=== PATIENT | male | born 1990 | race Caucasian/White ===

== ENCOUNTER 2019-08-30 23:20 | Emergency (ER) | payer SELFPAY ==
[~2019-08-30] VITALS: Ht 165.1 cm; Wt 90.0 kg
--- NOTE | 2019-08-30 23:24 | ED.ADGEN ---
Past History Past Medical History Deaf, palate defect, - at Adult General Chief Complaint Chief Complaint ".. This all started on a trip to [facility].. for baby shower.. I notice on the way down there.. .I started getting this stomach, chest pain.. I thought it was just that I was hungry... but I got down there and tried to eat.. and it was like knifes in my chest and stomach.. that was on this past Thursday... and ever since.. I have not been able to eat solids.. I can get some liquids down... but the pain is no better..." .. " I can't hardly walk, or step off a curb... with the pain..." HPI HPI Patient is a 29 year old male who presents with above hx and complaints of chest epigastric and right upper quadrant abdomen pain since this past Thursday on August 27. Patient states nothing makes the pain better. Movement makes the pain worse. Eating solids makes the pain worse. No history of GERD or reflux. No history of gallbladder disease with him or family members. 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 No specific history of bad food. Recent travel to [facility]. No history of immunosuppression. Has tried Pepto-Bismol at home and had only increased abdomen discomfort. Pt. describes his pain as severe. Review of Systems Review of Systems Constitutional: Denies fever or chills [] Eyes: Denies change in visual acuity, redness, or eye pain [] HENT: Denies nasal congestion or sore throat [] Respiratory: Denies cough or shortness of breath [] Cardiovascular: No additional information not addressed in HPI [] GI: Patient has complaints of epigastric abdominal pain, nausea,. No vomiting, bloody stools or diarrhea [] : Denies dysuria or hematuria [] Musculoskeletal: Denies back pain or joint pain [] Integument: Denies rash or skin lesions [] Neurologic: Denies headache, focal weakness or sensory changes [] Endocrine: Denies polyuria or polydipsia [] All other systems were reviewed and found to be within normal limits, except as documented in this note. Family History Family History Noncontributory Current Medications Current Medications Current Medications Medications (Trade) Dose Ordered Sig/Sumit Start Time Stop Time Status Last Admin Dose Admin Famotidine (Pepcid Vial) 20 mg 1X ONCE 08/31/19 00:30 08/31/19 00:31 DC 08/31/19 00:52 20 MG Hydromorphone HCl (Dilaudid) 2 mg 1X ONCE 08/31/19 06:00 08/31/19 05:57 DC Info (Do NOT chart on this entry -- for MONITORING) 1 each PRN DAILY PRN 08/31/19 00:30 08/31/19 05:57 DC Iohexol (Omnipaque 240 Mg/ml) 30 ml 1X ONCE 08/31/19 01:00 08/31/19 01:01 DC 08/31/19 01:35 30 ML Iohexol (Omnipaque 300 Mg/ml) 75 ml 1X ONCE 08/31/19 01:00 08/31/19 01:01 DC 08/31/19 01:35 75 ML Lactated Ringer's 1,000 ml @ 1,000 mls/hr 1X ONCE 08/31/19 04:30 08/31/19 05:29 DC 08/31/19 03:40 1,000 MLS/HR Levofloxacin/ Dextrose 100 ml @ 100 mls/hr 1X ONCE 08/31/19 05:30 08/31/19 05:57 DC 08/31/19 05:39 100 MLS/HR Magnesium Hydroxide (Milk Of Magnesia) 2,400 mg 1X ONCE 08/31/19 00:30 08/31/19 00:31 DC 08/31/19 00:52 2,400 MG Metronidazole 100 ml @ 100 mls/hr 1X ONCE 08/31/19 05:30 08/31/19 05:57 DC Metronidazole (Flagyl) 500 mg 1X ONCE 08/31/19 03:00 08/31/19 03:01 DC 08/31/19 03:06 500 MG Morphine Sulfate (Morphine 10mg Syringe) 10 mg 1X ONCE 08/31/19 03:30 08/31/19 03:31 DC 08/31/19 03:06 10 MG Ondansetron HCl (Zofran) 8 mg 1X ONCE 08/31/19 03:30 08/31/19 03:31 DC 08/31/19 03:06 8 MG Sucralfate (Carafate) 1 gm 1X ONCE 08/31/19 00:30 08/31/19 00:31 DC 08/31/19 00:52 1 GM Trimethoprim/ Sulfamethoxazole (Bactrim Ds) 1 tab 1X ONCE 08/31/19 03:00 08/31/19 03:01 DC 08/31/19 03:06 1 TAB See nursing for home meds Allergies Allergies Allergies Coded Allergies Type Severity Reaction Last Updated Verified amoxicillin Allergy Intermediate 08/30/19 Yes cefaclor Allergy Intermediate 08/30/19 Yes clavulanic acid Allergy Intermediate 08/30/19 Yes Physical Exam Physical Exam Constitutional: Moderately acute distress, non-toxic appearance. Tearful. HENT: Normocephalic, atraumatic, bilateral external ears normal, oropharynx moist, no oral exudates, nose normal. Old mastoid surgery scars Eyes: PERRLA, EOMI, conjunctiva normal, no discharge. [] Neck: Normal range of motion, no tenderness, supple, no stridor. [] Cardiovascular: Tachycardia Heart rate regular rhythm, no murmur [] Lungs & Thorax: Bilateral breath sounds equal at apex on auscultation [] Abdomen: Bowel sounds normal, soft, right upper quadrant and epi gastric tenderness, no masses, no pulsatile masses. Climbs rectal exam at this time. (No history of tarry stools). Rebound to right upper quadrant and epigastric. Skin: Warm, dry, no erythema, no rash. [] Multiple tattoos. Back: No tenderness, no CVA tenderness. [] Extremities: No tenderness, no cyanosis, no clubbing, ROM intact, no edema. [] No true psoas sign. Neurologic: Alert and oriented X 3, normal motor function, normal sensory function, no focal deficits noted. [] Psychologic: Affect anxious, judgement normal, mood normal. [] Current Patient Data Vital Signs Vital Signs Date Time Temp Pulse Resp B/P (MAP) Pulse Ox O2 Delivery O2 Flow Rate FiO2 08/31/19 05:07 95 20 116/62 (80) 97 Room Air 08/30/19 23:20 99.0 Lab Results Laboratory Tests Test 08/30/19 23:44 08/30/19 23:57 Urine Collection Type Unknown Urine Color Yellow Urine Clarity Clear Urine pH 7.0 Urine Specific Sylvester 1.020 Urine Protein Neg (NEG-TRACE) Urine Glucose (UA) Neg mg/dL (NEG) Urine Ketones (Stick) Neg mg/dL (NEG) Urine Blood Neg (NEG) Urine Nitrite Neg (NEG) Urine Bilirubin Neg (NEG) Urine Urobilinogen Dipstick 0.2 mg/dL (0.2 mg/dL) Urine Leukocyte Esterase Neg (NEG) Urine RBC 0 /HPF (0-2) Urine WBC 1-4 /HPF (0-4) Urine Squamous Epithelial Cells Occ /LPF Urine Amorphous Sediment Present /HPF Urine Bacteria Few /HPF (0-FEW) Urine Opiates Screen Neg (NEG) Urine Methadone Screen Neg (NEG) Urine Barbiturates Neg (NEG) Urine Phencyclidine Screen Neg (NEG) Urine Amphetamine/Methamphetamine Neg (NEG) Urine Benzodiazepines Screen Neg (NEG) Urine Cocaine Screen Neg (NEG) Urine Cannabinoids Screen Neg (NEG) Urine Ethyl Alcohol Neg (NEG) White Blood Count 14.3 x10^3/uL (4.0-11.0) H Red Blood Count 6.27 x10^6/uL (4.30-5.70) H Hemoglobin 17.7 g/dL (13.0-17.5) H Hematocrit 52.8 % (39.0-53.0) Mean Corpuscular Volume 84 fL (79-100) Mean Corpuscular Hemoglobin 28 pg (25-35) Mean Corpuscular Hemoglobin Concent 34 g/dL (31-37) Red Cell Distribution Width 14.0 % (11.5-14.5) Platelet Count 265 x10^3/uL (140-400) Neutrophils (%) (Auto) 70 % (31-73) Lymphocytes (%) (Auto) 20 % (24-48) L Monocytes (%) (Auto) 7 % (0-9) Eosinophils (%) (Auto) 2 % (0-3) Basophils (%) (Auto) 1 % (0-3) Neutrophils # (Auto) 10.1 x10^3uL (1.8-7.7) H Lymphocytes # (Auto) 2.9 x10^3/uL (1.0-4.8) Monocytes # (Auto) 1.0 x10^3/uL (0.0-1.1) Eosinophils # (Auto) 0.3 x10^3/uL (0.0-0.7) Basophils # (Auto) 0.1 x10^3/uL (0.0-0.2) Prothrombin Time 10.6 SEC (9.4-11.4) Prothrombin Time INR 1.0 (0.9-1.1) Activated Partial Thromboplast Time 23 SEC (23-33) D-Dimer (Rose) 0.52 mg/L (0.00-0.50) H Sodium Level 143 mmol/L (136-145) Potassium Level 3.6 mmol/L (3.5-5.1) Chloride Level 105 mmol/L (98-107) Carbon Dioxide Level 32 mmol/L (21-32) Anion Gap 6 (6-14) Blood Urea Nitrogen 15 mg/dL (8-26) Creatinine 1.0 mg/dL (0.7-1.3) Estimated GFR (Cockcroft-Gault) 89.6 Glucose Level 135 mg/dL (70-99) H Calcium Level 7.8 mg/dL (8.5-10.1) L Magnesium Level 1.6 mg/dL (1.8-2.4) L Total Bilirubin 0.2 mg/dL (0.2-1.0) Direct Bilirubin 0.1 mg/dL (0.0-0.2) Aspartate Amino Transferase (AST) 12 U/L (15-37) L Alanine Aminotransferase (ALT) 27 U/L (16-63) Alkaline Phosphatase 71 U/L (46-116) Creatine Kinase 40 U/L (39-308) Troponin I Quantitative < 0.017 ng/mL (0-0.055) Total Protein 6.5 g/dL (6.4-8.2) Albumin 2.9 g/dL (3.4-5.0) L Amylase Level 44 U/L (25-115) Lipase 118 U/L (73-393) EKG EKG My interpretation EKG shows a sinus rhythm at 99 bpm. Does have some bimodal P- wave is in left leads. Mild left axis. J point findings in V2 through V3 but no contralateral changes consistent with STEMI.[] Radiology/Procedures Radiology/Procedures [address] [address] IMAGING REPORT Signed PATIENT: CALLIE CHO SACCOUNT: [id number] : 1990 LOCATION: ER AGE: 29 SEX: M EXAM STATUS: REG ER ORD. PHYSICIAN: JOANA VASQUEZ MD REASON: Lower chest and abdominal pain, nausea, constipation PROCEDURE: CHEST PA & LATERAL CHEST PA LATERAL History: Lower chest pain. Comparison: None. Findings: No consolidation or pleural effusion. Normal heart size. Impression: 1. No acute cardiopulmonary process. Electronically signed by: Kyaw Guzman DO (08/31/2019 2:21 AM) [facility] DICTATED AND SIGNED BY: KYAW GUZMAN DO DATE: 08/31/19220 CC: JOANA VASQUEZ MD; PCP,NO ~ [address] [address] IMAGING REPORT Signed PATIENT: CALLIE CHO: [id number] : 1990 LOCATION: ER AGE: 29 SEX: M EXAM STATUS: REG ER ORD. PHYSICIAN: JOANA VASQUEZ MD REASON: Lower chest and abdomen pain, nausea, constipation PROCEDURE: ABDOMEN SUPINE & UPRIGHT ABDOMEN SUPINE UPRIGHT History: Abdominal pain. Nausea. Constipation. Technique: Supine and upright views of the abdomen. Comparison: None. Findings: No pneumatosis or pneumoperitoneum. Imaged lung bases are unremarkable. Minimal small bowel gas. Air and stool scattered throughout the imaged colon. Impression: 1. Nonobstructed bowel gas pattern. Electronically signed by: Kyaw Guzman DO (08/31/2019 2:20 AM) [facility] DICTATED AND SIGNED BY: KYAW GUZMAN DO DATE: 08/31/19219 CC: JOANA VASQUEZ MD; PCP,NO ~ [[address] [address] IMAGING REPORT Signed PATIENT: CALLIE CHO: [id number] : 1990 LOCATION: ER AGE: 29 SEX: M EXAM STATUS: REG ER ORD. PHYSICIAN: JOANA VASQUEZ MD REASON: Abdomen pain, nausea PROCEDURE: CT ABD PELV W/ORAL&IV CONTRAST CT ABD PELV W/ORAL IV CONTRAST History: Abdominal pain. Nausea. Technique: After the administration of oral and intravenous contrast, CT imaging was performed of the abdomen and pelvis. Multiplanar images are reviewed. Exposure: One or more of the following individualized dose reduction techniques were utilized for this examination: 1. Automated exposure control 2. Adjustment of the mA and/or kV according to patient size 3. Use of iterative reconstruction technique. Comparison: None Findings: Lower chest: No consolidation or pleural effusion. Abdomen and pelvis: Hepatic steatosis. The spleen, adrenal glands, pancreas and gallbladder are unremarkable. Unremarkable appearance of the kidneys. Bilateral extrarenal pelvises. No intrarenal calculi. Minimal left pelvocaliectasis. Normal appendix. No evidence of bowel obstruction. Oral contrast opacifies to the level of the cecum. No pathologic lymphadenopathy. No ascites. Pelvic contents are unremarkable. Bones: No pathologic osseous lesions. Impression: 1. No acute intra-abdominal or pelvic pathology. 2. Minimal left pelvocaliectasis. 3. Mild hepatic steatosis. Electronically signed by: Kyaw Guzman DO (08/31/2019 2:06 AM) [facility] DICTATED AND SIGNED BY: KYAW GUZMAN DO DATE: 08/31/19205 CC: JOANA VASQUEZ MD; PCP,NO ~ ][place] [address] IMAGING REPORT Signed PATIENT: CALLIE CHO SACCOUNT: [id number] : 1990 LOCATION: ER AGE: 29 SEX: M EXAM STATUS: REG ER ORD. PHYSICIAN: JOANA VASQUEZ MD REASON: biliary colic PROCEDURE: ABDOMEN LTD ABDOMEN LTD History: Right upper quadrant pain. Comparison: CT August 31, 2019. Technique: Transabdominal ultrasound images are obtained of the right upper quadrant. Findings: Visualized pancreas is not well seen due to overlying bowel gas. Liver is increased in echogenicity. Right hepatic lobe measures 16.9 cm. Portal flow is hepatopedal. Gallbladder sludge. No cholelithiasis. No gallbladder wall thickening. Common bile duct caliber is normal measuring 6 mm in diameter. The right kidney measures 12.4 x 4.5 x 3.9 cm in length and is without evidence of obstruction or stone. Visualized portions of the aorta and IVC have normal caliber. IMPRESSION: 1. Gallbladder sludge. Electronically signed by: Kyaw Guzman DO (08/31/2019 4:39 AM) [facility] DICTATED AND SIGNED BY: KYAW GUZMAN DO DATE: 08/31/19 0439 CC: JOANA VASQUEZ MD; PCP,NO ~ Course & Med Decision Making Course & Med Decision Making Pertinent Labs and Imaging studies reviewed. (See chart for details) Pt. unable to achieve any relief after two bolus LR, and Morphine 10 x 2, MOM, Carfate and Pepcid. Discussed presentation, testing and tx plan with Dr. Venegas- Transfer to his service at [facility]. Discussed presentation with Dr. Mcdonald, he will consult on pt. for abd. pain and biliary colic [] Final Impression Final Impression 1. Epigastric and right upper quadrant pain[] 2. Biliary Colic- Gallbladder Sludge 3. Constipation 4. Hypomagnesium 1.6 5. Leukocytosis 14.3 6. Dehydration Dragon Disclaimer Dragon Disclaimer This electronic medical record was generated, in whole or in part, using a voice recognition dictation system. Dragon Disclaimer This chart was dictated in whole or in part using Voice Recognition software in a busy, high-work load, and often noisy Emergency Department environment. It may contain unintended and wholly unrecognized errors or omissions. Dragon Disclaimer This chart was dictated in whole or in part using Voice Recognition software in a busy, high-work load, and often noisy Emergency Department environment. It may contain unintended and wholly unrecognized errors or omissions. JOANA VASQUEZ MD Aug 30, 2019 23:24
[2019-08-31 00:29] LABS: BASO # 0.1 x10^3/uL (0.0-0.2); BASO % 1 % (0-3); EOS # 0.3 x10^3/uL (0.0-0.7); EOS % 2 % (0-3); HEMATOCRIT 52.8 % (39.0-53.0); HEMOGLOBIN 17.7 g/dL (13.0-17.5); LYMPH # 2.9 x10^3/uL (1.0-4.8); LYMPH % 20 % (24-48); MEAN CORPUSCULAR HEMOGLOBIN 28 pg (25-35); MEAN CORPUSCULAR HGB CONC 34 g/dL (31-37); MEAN CORPUSCULAR VOLUME 84 fL (79-100); MONO % 7 % (0-9); NEUT # 10.1 x10^3uL (1.8-7.7); NEUT % 70 % (31-73); PLATELET COUNT 265 x10^3/uL (140-400); RED BLOOD COUNT 6.27 x10^6/uL (4.30-5.70); WHITE BLOOD COUNT 14.3 x10^3/uL (4.0-11.0)
[2019-08-31 00:30] LABS: BARBITURATES NEG (NEG); BENZODIAZEPINES NEG (NEG); CANNABINOIDS NEG (NEG); COCAINE NEG (NEG); METHADONE NEG (NEG); OPIATES NEG (NEG); PHENCYCLIDINE NEG (NEG)
[2019-08-31] MEDS ORDERED: CONTRAST GIVEN MC PRN (00:30)
[2019-08-31] MEDS ORDERED: MAGNESIUM HYDROXIDE 2,400 MG/30 ML ORAL.SUSP. PO ONE (00:30)
[2019-08-31] MEDS ORDERED: SUCRALFATE 1 GM TABLET. PO ONE (00:30)
[2019-08-31] MEDS ORDERED: MORPHINE SULFATE 10 MG/ML SYRINGE. SQ ONE ×2 (00:30→03:30)
[2019-08-31] MEDS ORDERED: IV RINGERS SOLUTION,LACTATED 1,000 ML IV SCH (00:30)
[2019-08-31] MEDS ORDERED: FAMOTIDINE 20 MG/2 ML VIAL IVP ONE (00:30)
[2019-08-31 00:32] LABS: AMPHETAMINE/METHAMPHETAMINE NEG (NEG)
[2019-08-31 00:38] LABS: AMORPHOUS SEDIMENT,UR PRESENT /HPF; BACTERIA,URINE FEW /HPF (0-FEW); BILIRUBIN,URINE NEG (NEG); CLARITY,URINE CLEAR; COLOR,URINE YELLOW; GLUCOSE,URINE NEG (NEG); NITRITE,URINE NEG (NEG); RBC,URINE 0 /HPF (0-2); SQUAMOUS EPITHELIAL CELL,UR OCC /LPF; UROBILINOGEN,URINE 0.2 mg/dL (0.2 mg/dL)
[2019-08-31 00:38] LABS: ALBUMIN 2.9 g/dL (3.4-5.0); CALCIUM 7.8 mg/dL (8.5-10.1); DIRECT BILIRUBIN 0.1 mg/dL (0.0-0.2); GFR 89.6; MAGNESIUM 1.6 mg/dL (1.8-2.4); POTASSIUM 3.6 mmol/L (3.5-5.1); TOTAL BILIRUBIN 0.2 mg/dL (0.2-1.0); TOTAL PROTEIN 6.5 g/dL (6.4-8.2)
[2019-08-31] MEDS ORDERED: IOHEXOL 240 MG/ML 50ML VIAL. PO ONE (01:00)
[2019-08-31] MEDS ORDERED: IOHEXOL 300 MG/ML 75 ML VIAL. IV ONE (01:00)
--- NOTE | 2019-08-31 02:09 | RAD ---
CT ABD PELV W/ORAL IV CONTRAST History: Abdominal pain. Nausea. Technique: After the administration of oral and intravenous contrast, CT imaging was performed of the abdomen and pelvis. Multiplanar images are reviewed. Exposure: One or more of the following individualized dose reduction techniques were utilized for this examination: 1. Automated exposure control 2. Adjustment of the mA and/or kV according to patient size 3. Use of iterative reconstruction technique. Comparison: None Findings: Lower chest: No consolidation or pleural effusion. Abdomen and pelvis: Hepatic steatosis. The spleen, adrenal glands, pancreas and gallbladder are unremarkable. Unremarkable appearance of the kidneys. Bilateral extrarenal pelvises. No intrarenal calculi. Minimal left pelvocaliectasis. Normal appendix. No evidence of bowel obstruction. Oral contrast opacifies to the level of the cecum. No pathologic lymphadenopathy. No ascites. Pelvic contents are unremarkable. Bones: No pathologic osseous lesions. Impression: 1. No acute intra-abdominal or pelvic pathology. 2. Minimal left pelvocaliectasis. 3. Mild hepatic steatosis. Electronically signed by: Kyaw Guzman DO (08/31/2019 2:06 AM) [facility]
[2019-08-31] MEDS ORDERED: METR500T PO (02:23)
[2019-08-31] MEDS ORDERED: RANI-376 PO (02:23)
[2019-08-31] MEDS ORDERED: SULF1TAB24 PO (02:23)
[2019-08-31] MEDS ORDERED: SUCR1TAB35 PO (02:23)
--- NOTE | 2019-08-31 02:23 | RAD ---
ABDOMEN SUPINE UPRIGHT History: Abdominal pain. Nausea. Constipation. Technique: Supine and upright views of the abdomen. Comparison: None. Findings: No pneumatosis or pneumoperitoneum. Imaged lung bases are unremarkable. Minimal small bowel gas. Air and stool scattered throughout the imaged colon. Impression: 1. Nonobstructed bowel gas pattern. Electronically signed by: Kyaw Guzman DO (08/31/2019 2:20 AM) [facility]
--- NOTE | 2019-08-31 02:24 | RAD ---
CHEST PA LATERAL History: Lower chest pain. Comparison: None. Findings: No consolidation or pleural effusion. Normal heart size. Impression: 1. No acute cardiopulmonary process. Electronically signed by: Kyaw Guzman DO (08/31/2019 2:21 AM) [facility]
[2019-08-31] MEDS ORDERED: metroNIDAZOLE 500 MG TABLET PO ONE (03:00)
[2019-08-31] MEDS ORDERED: SMZ/TMP 800/160MG TABLET. PO ONE (03:00)
[2019-08-31] MEDS ORDERED: ONDANSETRON PF 4 MG/2 ML VIAL. IVP ONE (03:30)
[2019-08-31] MEDS ORDERED: IV RINGERS SOLUTION,LACTATED 1,000 ML IV ONE (04:30)
--- NOTE | 2019-08-31 04:42 | RAD ---
ABDOMEN LTD History: Right upper quadrant pain. Comparison: CT August 31, 2019. Technique: Transabdominal ultrasound images are obtained of the right upper quadrant. Findings: Visualized pancreas is not well seen due to overlying bowel gas. Liver is increased in echogenicity. Right hepatic lobe measures 16.9 cm. Portal flow is hepatopedal. Gallbladder sludge. No cholelithiasis. No gallbladder wall thickening. Common bile duct caliber is normal measuring 6 mm in diameter. The right kidney measures 12.4 x 4.5 x 3.9 cm in length and is without evidence of obstruction or stone. Visualized portions of the aorta and IVC have normal caliber. IMPRESSION: 1. Gallbladder sludge. Electronically signed by: Kyaw Guzman DO (08/31/2019 4:39 AM) [facility]
[2019-08-31 05:07] VITALS: BP 116/62
[2019-08-31] MEDS ORDERED: HYDROmorphone PF 2 MG/ML VIAL IV ONE (06:00)
== END 2019-08-31 05:55 | disposition short-term general hospital (02) ==
LOC: ER 23:20
DX: K80.50 Calculus of bile duct without cholangitis or cholecystitis without obstruction (principal); K59.00 Constipation, unspecified; E83.42 Hypomagnesemia; D72.829 Elevated white blood cell count, unspecified; E86.0 Dehydration; Z88.1 Allergy status to other antibiotic agents
CPT/HCPCS: 36415; 71046; 74019; 74177; 76705; 80048; 80076; 80307; 81001; 82150; 82550; 83690; 83735; 84443; 84484; 85025; 85379; 85610; 85730; 86705; 86709; 86803; 87340; 93005; 96361; 96365; 96372; 96375; 99285; J1956; J2270; J2405; J3490; J7120; Q9966; Q9967

== ENCOUNTER 2019-10-19 19:59 | Emergency (ER) | payer SELFPAY ==
[~2019-10-19] VITALS: Ht 165.1 cm; Wt 91.2 kg
[~2019-10-19 19:59] MED LIST: METR500T PO; RANI-376 PO; SUCR1TAB35 PO; SULF1TAB24 PO
--- NOTE | 2019-10-19 20:09 | PHYS DOC ---
Past History Past Medical History: Other Past Surgical History: Other Additional Past Surgical Histo: 9 EAR SURGERYS AND cleft palate Alcohol Use: Rarely Drug Use: None Adult General Chief Complaint Chief Complaint: ".. I am having really bad abdomen pain.. Nuasea and vomiting.. and diarrhea.. It really just started in last 24 hrs.... this af ternoon.. I ve vomited x 6, and 4 watery green stools... " HPI HPI Patient is a 29 year old male who presents with above hx and complaints of generalized abdomen pain. Patient denies any intake of bad food. No recent t ravel. No specific ill contacts. Patient denies any history immunosuppression. Patient only had 2 alcoholic drinks yesterday. Patient denies any trauma. Patient normally healthy. Pain is more likely localized to epigastric and right upper quadrant. Patient states pain seems to be worse after high-fat meal. Patient denies previous history of gallbladder disease or biliary colic. No recent dark or tarry stools. No history of kidney stones. Patient follows with Dr. Singh for [facility] Review of Systems Review of Systems Constitutional: Subjective history of fever or chills [] Eyes: Denies change in visual acuity, redness, or eye pain [] HENT: Denies nasal congestion or sore throat [] Respiratory: Denies cough or shortness of breath [] Cardiovascular: No additional information not addressed in HPI [] GI: Complaints of abdominal pain, nausea, vomiting, and diarrhea [] : Denies dysuria or hematuria [] Musculoskeletal: Denies back pain or joint pain [] Integument: Denies rash or skin lesions [] Neurologic: Denies headache, focal weakness or sensory changes [] Endocrine: Denies polyuria or polydipsia [] All other systems were reviewed and found to be within normal limits, except as documented in this note. Family History Family History Noncontributory Current Medications Current Medications See nursing for home medications Allergies Allergies Allergies Coded Allergies Type Severity Reaction Last Updated Verified amoxicillin Allergy Intermediate 08/30/19 Yes cefaclor Allergy Intermediate 08/30/19 Yes clavulanic acid Allergy Intermediate 08/30/19 Yes Physical Exam Physical Exam Constitutional: Reports he is in acute distress, non-toxic appearance. [] HENT: Normocephalic, atraumatic, bilateral external ears normal, oropharynx dry, no oral exudates, nose normal. [] Eyes: PERRLA, EOMI, conjunctiva normal, no discharge. [] Neck: Normal range of motion, no tenderness, supple, no stridor. [] Cardiovascular:Heart rate regular rhythm, no murmur [] Lungs & Thorax: Bilateral breath sounds equal apex scattered wheezes auscultation [] Abdomen: Bowel sounds hyperactive, soft, generalized tenderness, no masses, no pulsatile masses. [] Rebound to right upper quadrant Skin: Warm, dry, no erythema, no rash. Total right arm covered in tattoos Back: No tenderness, no CVA tenderness. [] Extremities: No tenderness, no cyanosis, no clubbing, ROM intact, no edema. []Mild psoas right Neurologic: Alert and oriented X 3, normal motor function, normal sensory function, no focal deficits noted. [] Psychologic: Affect anxious, judgement normal, mood normal. [] EKG EKG [] Radiology/Procedures Radiology/Procedures [][facility] REPORT Signed PATIENT: CALLIE CHOOUNT: [id number] : 1990 LOCATION: ER AGE: 29 SEX: M EXAM STATUS: REG ER ORD. PHYSICIAN: JOANA VASQUEZ MD REASON: Abdomen pain, nausea, vomiting, diarrhea PROCEDURE: CT ABD PELV W/ORAL&IV CONTRAST Study: CT abdomen/pelvis with intravenous contrast Indication: Abdominal pain, nausea, vomiting and diarrhea. Comparison: 08/31/2019 Technique: Helical CT imaging performed of the abdomen and pelvis after the intravenous administration of 74 cc Omnipaque 300 contrast. Sagittal and coronal reformats were obtained. One or more of the following individualized dose reduction techniques were utilized for this examination: 1. Automated exposure control 2. Adjustment of the mA and/or kV according to patient size 3. Use of iterative reconstruction technique. Findings: Mild basilar volume loss. Hepatic steatosis. Unremarkable gallbladder, pancreas, spleen and adrenal glands. Unchanged degree of pelvocaliectasis on the left. Symmetric cortical enhancement. No hydroureter bilaterally. Unremarkable urinary bladder and prostate. A low-attenuation focus at the base of penis in the expected location of the bulbous urethra is seen on image 98 series 2 measuring up to 2.3 cm. This is unchanged in size from the prior and is relatively simple in density. No pericolonic inflammation. Normal appendix. Unremarkable small bowel and stomach. Unremarkable major vascular structures. No adenopathy. No free fluid or air. No acute osseous abnormality. Redemonstrated small bone islands within the femoral heads. Incompletely formed disc space seen at S1-S2. Impression: 1. No acute abnormality seen throughout the abdomen or pelvis. 2. Unchanged low-attenuation focus in the expected location of the bulbous urethra favored on account of a Cowper duct cyst. This could be developmental or acquired and of unlikely clinical significance. The appearance of the kidneys and collecting system is unchanged. 3. Hepatic steatosis. Electronically signed by: FLORENCIA FISHMAN MD (10/19/2019 11:39 PM) [place] [id number] DICTATED AND SIGNED BY: FLORENCIA FISHMAN MD DATE: 10/19/19 [id number] CC: JOANA VASQUEZ MD; PCP,NO ~ [address] [place] [address] IMAGING REPORT Signed PATIENT: CALLIE CHOOUNT: [id number] : 1990 LOCATION: ER AGE: 29 SEX: M EXAM STATUS: REG ER ORD. PHYSICIAN: JOANA VASQUEZ MD REASON: Abdomen pain, diarrhea, nausea, fatigue PROCEDURE: ACUTE ABDOMEN SERIES ACUTE ABDOMEN SERIES History: Abdomen pain, diarrhea, nausea, fatigue. COMPARISON: Abdominal series of 08/31/2019. FINDINGS: Single view the chest is obtained. Cardiomediastinal silhouette is not enlarged. No evidence of pneumothorax, pleural effusion or consolidating infiltrate. Bones appear to be grossly intact. Splenic shadow may be slightly enlarged. No evidence of pathologic calcification. Bowel gas pattern is nonobstructive. Bones appear grossly intact. No evidence of free intraperitoneal gas on upright view. IMPRESSION: 1. No consolidating infiltrate in the chest. 2. Nonobstructive bowel gas pattern. 3. Possible mild splenomegaly. Electronically signed by: Grayson Echols MD (10/19/2019 9:07 PM) [facility] DICTATED AND SIGNED BY: GRAYSON ECHOLS MD DATE: 10/19/19 9709 CC: JOANA VASQUEZ MD; PCP,NO ~ Course & Med Decision Making Course & Med Decision Making Pertinent Labs and Imaging studies reviewed. (See chart for details) Patient's stay on a clear fluid diet only for the next 48 hours. No solids. No milk products. Clear fluids only must allow bowel rest. Takes Zantac 150 mg twice day. Take Zofran 8 mg up 4 times day for active vomiting. Tylenol and ibuprofen for pain. Follow-up primary care. Return if any concerns. Impression: 1. Abdomen Pain 2. Acute Gastroenteritis, NVD 3. Mild Leukocytosis 13.2 4. Biliary colic [] Dragon Disclaimer Dragon Disclaimer This electronic medical record was generated, in whole or in part, using a voice recognition dictation system. Departure Departure: Disposition: 01 HOME/RESIDENCE PRIOR TO ADM Condition: STABLE Referrals: PCPJOHANNA (PCP) Scripts Ranitidine Hcl (ZANTAC) 150 Mg Tablet 150 MG PO BID for GERD, Gastritis for 30 Days, #60 TAB Prov: JOANA VASQUEZ MD 10/20/19 Ondansetron Hcl (ZOFRAN) 8 Mg Tablet 8 MG PO QIDPRN PRN for active nause and vomiting, #30 BOTTLE Prov: JOANA VASQUEZ MD 10/20/19 Dragon Disclaimer This chart was dictated in whole or in part using Voice Recognition software in a busy, high-work load, and often noisy Emergency Department environment. It may contain unintended and wholly unrecognized errors or omissions. Dragon Disclaimer This chart was dictated in whole or in part using Voice Recognition software in a busy, high-work load, and often noisy Emergency Department environment. It may contain unintended and wholly unrecognized errors or omissions. JOANA VASQUEZ MD Oct 19, 2019 20:09
[2019-10-19] MEDS ORDERED: ONDANSETRON PF 4 MG/2 ML VIAL. ONE (20:33)
[2019-10-19] MEDS ORDERED: IV RINGERS SOLUTION,LACTATED 1,000 ML IV SCH (20:36)
[2019-10-19 20:37] LABS: BARBITURATES NEG (NEG); BENZODIAZEPINES NEG (NEG); CANNABINOIDS NEG (NEG); COCAINE NEG (NEG); METHADONE NEG (NEG); OPIATES NEG (NEG); PHENCYCLIDINE NEG (NEG)
[2019-10-19 20:45] LABS: AMPHETAMINE/METHAMPHETAMINE NEG (NEG)
[2019-10-19] MEDS ORDERED: KETOROLAC 30 MG/ML VIAL. IVP ONE (20:45)
[2019-10-19] MEDS ORDERED: FAMOTIDINE 20 MG/2 ML VIAL IVP ONE (20:45)
[2019-10-19] MEDS ORDERED: ONDANSETRON PF 4 MG/2 ML VIAL. IVP ONE (20:45)
[2019-10-19 20:52] LABS: BASO # 0.1 x10^3/uL (0.0-0.2); BASO % 1 % (0-3); EOS # 0.1 x10^3/uL (0.0-0.7); EOS % 1 % (0-3); HEMATOCRIT 46.1 % (39.0-53.0); HEMOGLOBIN 15.7 g/dL (13.0-17.5); LYMPH # 0.7 x10^3/uL (1.0-4.8); LYMPH % 5 % (24-48); MEAN CORPUSCULAR HEMOGLOBIN 28 pg (25-35); MEAN CORPUSCULAR HGB CONC 34 g/dL (31-37); MEAN CORPUSCULAR VOLUME 81 fL (79-100); MONO # 0.6 x10^3/uL (0.0-1.1); MONO % 4 % (0-9); NEUT # 11.7 x10^3uL (1.8-7.7); NEUT % 89 % (31-73); PLATELET COUNT 228 x10^3/uL (140-400); RED BLOOD COUNT 5.67 x10^6/uL (4.30-5.70); RED CELL DISTRIBUTION WIDTH 14.2 % (11.5-14.5); WHITE BLOOD COUNT 13.2 x10^3/uL (4.0-11.0)
[2019-10-19 21:01] LABS: CALCIUM 8.7 mg/dL (8.5-10.1); CREATININE 0.9 mg/dL (0.7-1.3); GFR 101.2; POTASSIUM 3.7 mmol/L (3.5-5.1)
[2019-10-19 21:07] LABS: ALBUMIN 3.8 g/dL (3.4-5.0); DIRECT BILIRUBIN 0.1 mg/dL (0.0-0.2); TOTAL BILIRUBIN 0.6 mg/dL (0.2-1.0); TOTAL PROTEIN 8.4 g/dL (6.4-8.2)
--- NOTE | 2019-10-19 21:10 | RAD ---
ACUTE ABDOMEN SERIES History: Abdomen pain, diarrhea, nausea, fatigue. COMPARISON: Abdominal series of 08/31/2019. FINDINGS: Single view the chest is obtained. Cardiomediastinal silhouette is not enlarged. No evidence of pneumothorax, pleural effusion or consolidating infiltrate. Bones appear to be grossly intact. Splenic shadow may be slightly enlarged. No evidence of pathologic calcification. Bowel gas pattern is nonobstructive. Bones appear grossly intact. No evidence of free intraperitoneal gas on upright view. IMPRESSION: 1. No consolidating infiltrate in the chest. 2. Nonobstructive bowel gas pattern. 3. Possible mild splenomegaly. Electronically signed by: Grayson Echols MD (10/19/2019 9:07 PM) [facility]
[2019-10-19 21:15] LABS: BACTERIA,URINE 0 /HPF (0-FEW); BILIRUBIN,URINE NEG (NEG); CLARITY,URINE CLEAR; COLOR,URINE YELLOW; GLUCOSE,URINE NEG (NEG); NITRITE,URINE NEG (NEG); RBC,URINE 0 /HPF (0-2); SQUAMOUS EPITHELIAL CELL,UR OCC /LPF; UROBILINOGEN,URINE 0.2 mg/dL (0.2 mg/dL); WBC,URINE OCC /HPF (0-4)
[2019-10-19 21:26] LABS: INFLUENZA A PATIENT NEGATIVE (NEGATIVE); INFLUENZA B PATIENT NEGATIVE (NEGATIVE)
[2019-10-19] MEDS ORDERED: CONTRAST GIVEN MC PRN (22:00)
[2019-10-19] MEDS ORDERED: MORPHINE SULFATE 10 MG/ML SYRINGE. SQ ONE (22:00)
[2019-10-19] MEDS ORDERED: IOHEXOL 300 MG/ML 75 ML VIAL. IV ONE (22:00)
[2019-10-19] MEDS ORDERED: IOHEXOL 240 MG/ML 50ML VIAL. PO ONE (22:00)
--- NOTE | 2019-10-19 23:41 | RAD ---
Study: CT abdomen/pelvis with intravenous contrast Indication: Abdominal pain, nausea, vomiting and diarrhea. Comparison: 08/31/2019 Technique: Helical CT imaging performed of the abdomen and pelvis after the intravenous administration of 74 cc Omnipaque 300 contrast. Sagittal and coronal reformats were obtained. One or more of the following individualized dose reduction techniques were utilized for this examination: 1. Automated exposure control 2. Adjustment of the mA and/or kV according to patient size 3. Use of iterative reconstruction technique. Findings: Mild basilar volume loss. Hepatic steatosis. Unremarkable gallbladder, pancreas, spleen and adrenal glands. Unchanged degree of pelvocaliectasis on the left. Symmetric cortical enhancement. No hydroureter bilaterally. Unremarkable urinary bladder and prostate. A low-attenuation focus at the base of penis in the expected location of the bulbous urethra is seen on image 98 series 2 measuring up to 2.3 cm. This is unchanged in size from the prior and is relatively simple in density. No pericolonic inflammation. Normal appendix. Unremarkable small bowel and stomach. Unremarkable major vascular structures. No adenopathy. No free fluid or air. No acute osseous abnormality. Redemonstrated small bone islands within the femoral heads. Incompletely formed disc space seen at S1-S2. Impression: 1. No acute abnormality seen throughout the abdomen or pelvis. 2. Unchanged low-attenuation focus in the expected location of the bulbous urethra favored on account of a Cowper duct cyst. This could be developmental or acquired and of unlikely clinical significance. The appearance of the kidneys and collecting system is unchanged. 3. Hepatic steatosis. Electronically signed by: FLORENCIA FISHMAN MD (10/19/2019 11:39 PM) [facility]
[2019-10-20] MEDS ORDERED: ONDA8TAB9 PO (00:09)
[2019-10-20] MEDS ORDERED: RANI-376 PO (00:09)
[2019-10-20 00:39] VITALS: BP 136/70
== END 2019-10-20 00:43 | disposition home or self-care (01) ==
LOC: ER 19:59
DX: K52.9 Noninfective gastroenteritis and colitis, unspecified (principal); D72.829 Elevated white blood cell count, unspecified; K80.50 Calculus of bile duct without cholangitis or cholecystitis without obstruction; R11.2 Nausea with vomiting, unspecified; Z88.1 Allergy status to other antibiotic agents
CPT/HCPCS: 36415; 74022; 74177; 80048; 80076; 80307; 81001; 82150; 83690; 85025; 85610; 85730; 87804; 96361; 96372; 96374; 96375; 99285; J1885; J2270; J2405; J3490; J7120; Q9966; Q9967

== ENCOUNTER 2019-12-26 00:55 | Emergency (ER) | payer SELFPAY ==
[~2019-12-26] VITALS: Ht 165.1 cm; Wt 93.8 kg
[2019-12-26 00:55] VITALS: BP 112/79
[~2019-12-26 00:55] MED LIST changes: +ONDA8TAB9 PO
[2019-12-26] MEDS ORDERED: CLIN300C8 PO (01:08)
[2019-12-26] MEDS ORDERED: HYDR-3165 PO (01:08)
[2019-12-26] MEDS ORDERED: KETOROLAC 60 MG/2 ML VIAL. IM ONE ×2 (01:10→01:15)
--- NOTE | 2019-12-26 01:19 | PHYS DOC ---
Past History Past Medical History: No Pertinent History Past Surgical History: Other Additional Past Surgical Histo: 9 EAR SURGERYS AND cleft palate Alcohol Use: Rarely Drug Use: None Adult General Chief Complaint Chief Complaint: EARACHE/EAR PAIN HPI HPI Patient is a 29-year-old male presenting with chief complaint of cracked tooth increased right face pain x two weeks slowly getting worse Current Medications Current Medications Current Medications Medications (Trade) Dose Ordered Sig/Sumit Start Time Stop Time Status Last Admin Dose Admin Ketorolac Tromethamine (Toradol Im) 30 mg 1X ONCE 12/26/19 01:15 12/26/19 01:16 UNV Allergies Allergies Allergies Coded Allergies Type Severity Reaction Last Updated Verified amoxicillin Allergy Intermediate 08/30/19 Yes cefaclor Allergy Intermediate 08/30/19 Yes clavulanic acid Allergy Intermediate 08/30/19 Yes Physical Exam Physical Exam Constitutional: Well developed, well nourished, no acute distress, non-toxic appearance. [] HENT: Normocephalic, atraumatic, bilateral external ears normal, oropharynx moist, no oral exudates, nose normal. []cracked tooth no lad no appreciable abscess or facial swelling mild facial ttp Eyes: PERRLA, EOMI, conjunctiva normal, no discharge. [] Neck: Normal range of motion, no tenderness, supple, no stridor. [] Abdomen: soft, no tenderness, no masses, no pulsatile masses. [] Skin: Warm, dry, no erythema, no rash. [] Back: No tenderness, no CVA tenderness. [] Extremities: No tenderness, no cyanosis, no clubbing, ROM intact, no edema. [] Neurologic: Alert and oriented X 3, normal motor function, normal sensory function, no focal deficits noted. [] Psychologic: Affect normal, judgement normal, mood normal. [] EKG EKG [] Radiology/Procedures Radiology/Procedures [] Course & Med Decision Making Course & Med Decision Making Pertinent Labs and Imaging studies reviewed. (See chart for details) []abx and pain meds were given advised see dentist this week. Dragon Disclaimer Dragon Disclaimer This electronic medical record was generated, in whole or in part, using a voice recognition dictation system. Departure Departure: Impression: Primary Impression: Toothache Disposition: HOME, SELF-CARE Condition: STABLE Patient Instructions: Toothache-Brief Scripts Hydrocodone Bit/Acetaminophen (NORCO 5-325 TABLET) 1 Each Tablet 1-2 TAB PO Q4-6HRS PRN for NAUSEA/VOMITING, #8 TAB Prov: ELVIA MORALES MD 12/26/19 Clindamycin Hcl (CLINDAMYCIN HCL) 300 Mg Capsule 1 CAP PO TID for tooth, #21 CAP Prov: ELVIA MORALES MD 12/26/19 ELVIA MORALES MD Dec 26, 2019 01:19
== END 2019-12-26 01:18 | disposition home or self-care (01) ==
LOC: ER 00:55
DX: K08.89 Other specified disorders of teeth and supporting structures (principal); K03.81 Cracked tooth; R51 Headache; Z88.1 Allergy status to other antibiotic agents
CPT/HCPCS: 96372; 99283; J1885

== ENCOUNTER 2020-01-11 22:19 | Emergency (ER) | payer SELFPAY ==
[~2020-01-11] VITALS: Ht 165.1 cm; Wt 93.0 kg
[~2020-01-11 22:19] MED LIST changes: +CLIN300C8 PO; +HYDR-3165 PO
[2020-01-11 22:30] VITALS: BP 146/71
[2020-01-11] MEDS ORDERED: ERYTHROMYCIN 0.5% OPHTH OINTMENT 1GM TUBE. OS STA (22:35)
[2020-01-11] MEDS ORDERED: HYDR-3165 PO (22:48)
[2020-01-11] MEDS ORDERED: ERYT1OIN6 OP (22:48)
--- NOTE | 2020-01-11 22:48 | PHYS DOC ---
Past History Past Medical History: No Pertinent History Past Surgical History: Other Additional Past Surgical Histo: 9 EAR SURGERYS AND cleft palate Alcohol Use: Rarely Drug Use: None Adult General Chief Complaint Chief Complaint: EYE PROBLEMS HPI HPI Patient is a 30-year-old male who presents with complaint of left eye pain after accidentally scratching his eye with contact lens. Patient denies any loss of vision. He just reports that eyes painful and red. He rates pain as moderate. Injury occurred this morning.[] Review of Systems Review of Systems Constitutional: Denies fever or chills [] Eyes: Denies change in visual acuity. Complains of eye redness and pain [] Respiratory: Denies cough or shortness of breath [] Cardiovascular: No additional information not addressed in HPI [] Neurologic: Denies headache, focal weakness or sensory changes [] Current Medications Current Medications Current Medications Medications (Trade) Dose Ordered Sig/Sumit Start Time Stop Time Status Last Admin Dose Admin Erythromycin (Romycin) 0.5 inch 1X STAT 01/11/20 22:35 01/11/20 22:38 DC 01/11/20 22:42 0.5 INCH Fluorescein Sodium (Ful-Rakel 1mg) 1 strip 1X ONCE 01/11/20 23:00 01/11/20 23:01 01/11/20 22:42 1 STRIP Allergies Allergies Allergies Coded Allergies Type Severity Reaction Last Updated Verified amoxicillin Allergy Intermediate 08/30/19 Yes cefaclor Allergy Intermediate 08/30/19 Yes clavulanic acid Allergy Intermediate 08/30/19 Yes Physical Exam Physical Exam Constitutional: Well developed, well nourished, no acute distress, non-toxic appearance. [] Eyes: PERRLA, EOMI. sclera is moderately injected with small abrasion at the 7 o'clock position within the sclera, approaching the border of the iris [] Cardiovascular:Heart rate regular rhythm, no murmur [] Lungs & Thorax: Bilateral breath sounds clear to auscultation [] Neurologic: Alert and oriented X 3, no focal deficits noted. [] Current Patient Data Vital Signs Vital Signs Date Time Temp Pulse Resp B/P (MAP) Pulse Ox O2 Delivery O2 Flow Rate FiO2 01/11/20 22:30 98.9 109 20 146/71 (96) 96 Room Air EKG EKG [] Radiology/Procedures Radiology/Procedures [] Course & Med Decision Making Course & Med Decision Making Pertinent Labs and Imaging studies reviewed. (See chart for details) [] Dragon Disclaimer Dragon Disclaimer This electronic medical record was generated, in whole or in part, using a voice recognition dictation system. Departure Departure: Impression: Primary Impression: Abrasion of sclera of left eye Disposition: HOME, SELF-CARE Condition: STABLE Referrals: PCP,NO (PCP) Patient Instructions: Eye - Corneal Abrasion Scripts Hydrocodone Bit/Acetaminophen (NORCO 5-325 TABLET) 1 Each Tablet 1 TAB PO PRN Q6HRS PRN for PAIN, #15 TAB 0 Refills Prov: SHRAVAN LAMBERT Jr. DO 01/11/20 Erythromycin Base (Erythromycin) 1 Gm Oint...g. 0.5 INCH OP TID for infection, #3.5 GM Prov: SHRAVAN LAMBERT Jr. DO 01/11/20 Problem Qualifiers Primary Impression: Abrasion of sclera of left eye Encounter type: initial encounter Qualified Codes: S05.8X2A - Other injuries of left eye and orbit, initial encounter SHRAVAN LAMBERT Jr. DO Jan 11, 2020 22:48
[2020-01-11] MEDS ORDERED: FLUORESCEIN 1MG EYE STRIP. OS ONE (23:00)
== END 2020-01-11 23:00 | disposition home or self-care (01) ==
LOC: ER 22:19
DX: S05.02XA Injury of conjunctiva and corneal abrasion without foreign body, left eye, initial encounter (principal); W22.8XXA Striking against or struck by other objects, initial encounter; Z88.1 Allergy status to other antibiotic agents; Y93.89 Activity, other specified; Y92.89 Other specified places as the place of occurrence of the external cause; Y99.8 Other external cause status
CPT/HCPCS: 99283

== ENCOUNTER 2020-01-14 02:09 | Emergency (ER) | payer SELFPAY ==
[~2020-01-14] VITALS: Ht 165.1 cm; Wt 93.0 kg
[~2020-01-14 02:09] MED LIST changes: +ERYT1OIN6 OP
--- NOTE | 2020-01-14 02:12 | PHYS DOC ---
Past History Past Medical History: No Pertinent History Past Surgical History: Other Additional Past Surgical Histo: 9 EAR SURGERYS AND cleft palate Alcohol Use: Rarely Drug Use: None Adult General Chief Complaint Chief Complaint: ".. I got my eye scratched.. Using cosmetic contacts... I was here yesterday and he started me on erythromycin but I still red.. and the ointment may my vision blurred..." HPI HPI Patient is a 30 year old male who presents with above hx and complaints abrasion to left eye while attempting to remove a cosmetic contact. Patient seen on 01/10 for abrasion of his cornea. Does have conjunctivitis of left eye. Pupils equal react to light. No consensual light pain reflex.. Does have forcing uptake in sclera and cornea. Patient denies any history immunosuppression. No specific ill contacts. Is up-to-date with tetanus. Review of Systems Review of Systems Constitutional: Denies fever or chills [] Eyes: Complains of change in visual acuity, redness, and eye irritation left eye. HENT: Denies nasal congestion or sore throat [] Respiratory: Denies cough or shortness of breath [] Cardiovascular: No additional information not addressed in HPI [] GI: Denies abdominal pain, nausea, vomiting, bloody stools or diarrhea [] : Denies dysuria or hematuria [] Musculoskeletal: Denies back pain or joint pain [] Integument: Denies rash or skin lesions [] Neurologic: Denies headache, focal weakness or sensory changes [] Endocrine: Denies polyuria or polydipsia [] All other systems were reviewed and found to be within normal limits, except as documented in this note. Family History Family History Noncontributory Current Medications Current Medications See nursing for home meds Allergies Allergies Allergies Coded Allergies Type Severity Reaction Last Updated Verified amoxicillin Allergy Intermediate 08/30/19 Yes cefaclor Allergy Intermediate 08/30/19 Yes clavulanic acid Allergy Intermediate 08/30/19 Yes Physical Exam Physical Exam Constitutional: Well developed, well nourished, mild distress, non-toxic appearance. [] HENT: Normocephalic, atraumatic, bilateral external ears normal, oropharynx moist, no oral exudates, nose normal. [] Eyes: PERRLA, EOMI, right conjunctiva normal, no discharge. []Except findings in left eye as per history of present illness. Marked myosis Neck: Normal range of motion, no tenderness, supple, no stridor. [] Cardiovascular:Heart rate regular rhythm, no murmur [] Lungs & Thorax: Bilateral breath sounds equal at apex auscultation [] Abdomen: Bowel sounds normal, soft, no tenderness, no masses, no pulsatile masses. [] Skin: Warm, dry, no erythema, no rash. [] Back: No tenderness, no CVA tenderness. [] Extremities: No tenderness, no cyanosis, no clubbing, ROM intact, no edema. [] Neurologic: Alert and oriented X 3, normal motor function, normal sensory f unction, no focal deficits noted. [] Psychologic: Affect anxious, judgement normal, mood normal. [] EKG EKG [] Radiology/Procedures Radiology/Procedures [] Course & Med Decision Making Course & Med Decision Making Pertinent Labs and Imaging studies reviewed. (See chart for details) Patient to stop erythromycin ointment. To apply Polysporin small amount 4 times a day to left eye. Use toradol eye drops two four times a day. 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 Return if worsening, redness, or decisio n. Expect some blurring of vision with the ointment. Not to use contacts. Impression: 1. Cornea and sclera abrasion left eye [] Dragon Disclaimer Dragon Disclaimer This electronic medical record was generated, in whole or in part, using a voice recognition dictation system. Departure Departure: Disposition: 01 HOME/RESIDENCE PRIOR TO ADM Condition: STABLE Referrals: PCP,NO (PCP) Dragon Disclaimer This chart was dictated in whole or in part using Voice Recognition software in a busy, high-work load, and often noisy Emergency Department environment. It may contain unintended and wholly unrecognized errors or omissions. Dragon Disclaimer This chart was dictated in whole or in part using Voice Recognition software in a busy, high-work load, and often noisy Emergency Department environment. It may contain unintended and wholly unrecognized errors or omissions. JOANA VASQUEZ MD Jan 14, 2020 02:12
[2020-01-14 02:15] VITALS: BP 126/80
[2020-01-14] MEDS ORDERED: TETRACAINE 0.5% OPHTH SOLUTION 4ML BOTTLE. OS ONE (02:30)
[2020-01-14] MEDS ORDERED: FLUORESCEIN 1MG EYE STRIP. OS ONE (02:30)
[2020-01-14] MEDS ORDERED: KETOROLAC TROMETHAMINE 0.5% OPHTH SOLUTION BOTTLE. OS ONE (04:00)
[2020-01-14] MEDS ORDERED: BACITRACIN/POLYMYXIN B OPHTH OINTMENT 3.5GM TUBE. OU ONE (04:00)
== END 2020-01-14 03:49 | disposition home or self-care (01) ==
LOC: ER 02:09
DX: H18.822 Corneal disorder due to contact lens, left eye (principal); Z88.1 Allergy status to other antibiotic agents
CPT/HCPCS: 99284

== ENCOUNTER 2020-02-24 12:47 | Emergency (ER) | payer SELFPAY ==
[~2020-02-24] VITALS: Ht 165.1 cm; Wt 93.0 kg
[2020-02-24 12:47] VITALS: BP 126/80
--- NOTE | 2020-02-24 14:07 | PHYS DOC ---
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 Has no routine ENT follow-up. Has no PMD. Takes no routine antibiotics, not on daily steroids, no h/o immunocompromise state, is not a diabetic. Denies any recent upper respiratory infection. Reports h/o angioedema to ceclor, rash with amoxicillin. Review of systems: Denies associated fever, chills, sore throat, cough, dyspnea, orthopnea, chest pain, nasal congestion, sinus pressure, rhinorrhea, neck anita n/stiffness, headache, blurry vision, n/v/d/c, neuro deficits or back pain. Allergies: Allergies: Allergies Coded Allergies Type Severity Reaction Last Updated Verified amoxicillin Allergy Intermediate 08/30/19 Yes cefaclor Allergy Intermediate 08/30/19 Yes clavulanic acid Allergy Intermediate 08/30/19 Yes Physical Exam: PE: Constitutional: Well developed, poor hygiene, no acute distress, non-toxic appearance, afebrile HENT: Normocephalic, atraumatic, dandruff, oropharynx moist, no oral exudates, unremarkable right tympanic membrane, left TM not visualized, granulation tissue at left external canal, erythema posterior to left ear, no obliteration of auricular crease, no trismus Eyes: EOMI, conjunctiva normal, no discharge. [] Neck: Normal range of motion, no tenderness, supple, no stridor. [] Cardiovascular:Heart rate regular rhythm, no murmur [] Lungs & Thorax: Bilateral breath sounds clear to auscultation [] Abdomen: Bowel sounds normal, soft, no tenderness, no masses, no pulsatile masses. [] Skin: Warm, dry, no erythema, no rash. [] Back: No tenderness, no CVA tenderness. [] Extremities: No tenderness, no cyanosis, no clubbing, ROM intact, no edema. [] Neurologic: Alert and oriented X 3, normal motor function, normal sensory function, no focal deficits noted. [] Psychologic: Affect normal, judgement normal, mood normal. [] Current Patient Data: Vital Signs: HD stable, afebrile EKG: EKG: [] Radiology/Procedures: Radiology/Procedures: []IMAGING REPORT Signed PATIENT: CALLIE CHOOUNT: [id number] : 1990 LOCATION: ER AGE: 30 SEX: M EXAM STATUS: REG ER ORD. PHYSICIAN: GEORGETTE FAUST DO REASON: left mastoiditis PROCEDURE: CT MAXILLOFACIAL W/CONTRAST EXAM: CT Maxillofacial with IV contrast INDICATION: Left mastoiditis TECHNIQUE: Multi-detector row CT images were obtained through the maxillofacial region with the use of IV contrast. Post-processing reconstructed images were obtained for interpretation. All CT scans performed at this facility utilize dose optimization techniques as appropriate to the exam, including the following: Automated exposure control and adjustment of the mA and/or KV according to patient size (this includes techniques or standardized protocols for targeted exams where dose is indication/reason for exam). IV CONTRAST: Administered COMPARISON: None FINDINGS: OSSEOUS: No evidence of fracture or bone destruction. Multiple dental caries are present, most conspicuously in the bilateral maxillary molar teeth and in the right maxillary premolar teeth. 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 VISUALIZED INTRACRANIAL STRUCTURES: Unremarkable. No evidence of venous sinus thrombosis or epidural abscess.. ORBITS: Orbital contents are unremarkable.. SINUSES: Scattered mucosal thickening in the right maxillary sinus. Otherwise the paranasal sinuses are clear. A left mastoid effusion is present along with soft tissue in the left middle ear cavity but the left external auditory canal shows wall thickening and periauricular soft tissue thickening as well. The right mastoids are slightly hypoplastic. The right outer and middle ears are unremarkable. SOFT TISSUES: Unremarkable. IMPRESSION: Findings compatible with left otomastoiditis without complicating features. 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 Patient afebrile with no leukocytosis, elevated CRP at 16. I discussed patient's care with Dr. Coe, ENT on-call who recommends outpatient Cleocin and Keflex (will do bactim instead given allergy hx) and Cortisporin, along with ENT outpatient follow-up information on Thursday. Strict ED return precautions for fever, neurologic deficits, neck pain/stiffness, trismus, headache or blurry vision. Written prescriptions given. Pt developed pruritic urticarial at 1800 over chest and back. IV dexamethasone, pepcid and oral benadryl given. Pt observed in ed -pt w/no angioedema, no pharyngeal edema, clear speech, no drooling. Strict ed return precautions for angioedema/breathing difficulties. I spoken with the patient and her caregivers. I explained the patient's condition, diagnoses and treatment plan based on the information available to me at this time. I have answered the patient and her caregiver's questions and addressed any concerns. The patient and her caregivers have a good understanding of patient's diagnosis, condition and treatment plan as can be expected at this point. Vital signs have been stable. Patient's condition is stable and appropriate for discharge from the emergency department. Patient will pursue further outpatient evaluation with primary care physician or other designated or consulting physician as outlined in the discharge instructions. The patient and/or caregivers are agreeable to this plan of care and follow-up instructions have been explained in detail. The patient and/or caregivers have received these instructions in written form and have expressed an understanding of the discharge instructions. The patient and/or caregivers are aware that any significant change of condition or worsening of symptoms should prompt immediate return to this or the closest emergency department or call to 911. Course & Med Decision Making: Course & Med Decision Making Pertinent Labs and Imaging studies reviewed. (See chart for details) [] Nicolas Disclaimer: Nicolas Disclaimer: This electronic medical record was generated, in whole or in part, using a voice recognition dictation system. Departure Departure: Impression: Primary Impression: Mastoiditis of left side Disposition: HOME/RESIDENCE PRIOR TO ADM Condition: STABLE Referrals: PCPJOHANNA (PCP) SHANICE COE DO Patient Instructions: Mastoiditis GEORGETTE FAUST DO February 24, 2020 14:07
[2020-02-24] MEDS ORDERED: IOHEXOL 300 MG/ML 75 ML VIAL. IV ONE (14:15)
[2020-02-24 14:37] LABS: BASO # 0.1 x10^3/uL (0.0-0.2); BASO % 1 % (0-3); EOS # 0.2 x10^3/uL (0.0-0.7); EOS % 2 % (0-3); HEMATOCRIT 47.4 % (39.0-53.0); HEMOGLOBIN 15.9 g/dL (13.0-17.5); LYMPH # 1.8 x10^3/uL (1.0-4.8); LYMPH % 22 % (24-48); MEAN CORPUSCULAR HEMOGLOBIN 28 pg (25-35); MEAN CORPUSCULAR HGB CONC 34 g/dL (31-37); MEAN CORPUSCULAR VOLUME 84 fL (79-100); MONO # 0.7 x10^3/uL (0.0-1.1); MONO % 8 % (0-9); NEUT # 5.6 x10^3uL (1.8-7.7); NEUT % 67 % (31-73); PLATELET COUNT 258 x10^3/uL (140-400); RED BLOOD COUNT 5.63 x10^6/uL (4.30-5.70); RED CELL DISTRIBUTION WIDTH 14.1 % (11.5-14.5); WHITE BLOOD COUNT 8.3 x10^3/uL (4.0-11.0)
[2020-02-24 15:03] LABS: CALCIUM 9.1 mg/dL (8.5-10.1); CREATININE 0.8 mg/dL (0.7-1.3); GFR 115.1
--- NOTE | 2020-02-24 15:03 | RAD ---
EXAM: CT Maxillofacial with IV contrast INDICATION: Left mastoiditis TECHNIQUE: Multi-detector row CT images were obtained through the maxillofacial region with the use of IV contrast. Post-processing reconstructed images were obtained for interpretation. All CT scans performed at this facility utilize dose optimization techniques as appropriate to the exam, including the following: Automated exposure control and adjustment of the mA and/or KV according to patient size (this includes techniques or standardized protocols for targeted exams where dose is indication/reason for exam). IV CONTRAST: Administered COMPARISON: None FINDINGS: OSSEOUS: No evidence of fracture or bone destruction. Multiple dental caries are present, most conspicuously in the bilateral maxillary molar teeth and in the right maxillary premolar teeth. 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 VISUALIZED INTRACRANIAL STRUCTURES: Unremarkable. No evidence of venous sinus thrombosis or epidural abscess.. ORBITS: Orbital contents are unremarkable.. SINUSES: Scattered mucosal thickening in the right maxillary sinus. Otherwise the paranasal sinuses are clear. A left mastoid effusion is present along with soft tissue in the left middle ear cavity but the left external auditory canal shows wall thickening and periauricular soft tissue thickening as well. The right mastoids are slightly hypoplastic. The right outer and middle ears are unremarkable. SOFT TISSUES: Unremarkable. IMPRESSION: Findings compatible with left otomastoiditis without complicating features. Electronically signed by: Ashley Mcdonough MD (02/24/2020 3:00 PM) [id number]
[2020-02-24 15:08] LABS: ALBUMIN 3.7 g/dL (3.4-5.0); ALBUMIN/GLOBULIN RATIO 0.8 (1.0-1.7); TOTAL BILIRUBIN 0.5 mg/dL (0.2-1.0); TOTAL PROTEIN 8.4 g/dL (6.4-8.2)
[2020-02-24] MEDS ORDERED: CLINDAMYCIN 600MG PREMIX 50 ML IV ONE (16:30)
[2020-02-24] MEDS ORDERED: VANCOMYCIN 2 GM in IV NORMAL SALINE 500ML 500 ML IV ONE (16:40)
[2020-02-24] MEDS ORDERED: diphenhydrAMINE HCL 25 MG CAPSULE PO ONE (18:17)
[2020-02-24] MEDS ORDERED: DEXAMETHASONE SOD PHOS 10 MG/ML VIAL ONE (18:17)
[2020-02-24] MEDS ORDERED: FAMOTIDINE 20 MG/2 ML VIAL ONE (18:17)
== END 2020-02-24 19:09 | disposition home or self-care (01) ==
LOC: ER 12:47
DX: H70.892 Other mastoiditis and related conditions, left ear (principal); R60.0 Localized edema; Z98.890 Other specified postprocedural states; Z88.1 Allergy status to other antibiotic agents; Z88.8 Allergy status to other drugs, medicaments and biological substances
CPT/HCPCS: 36415; 70487; 80053; 85025; 86140; 96365; 96366; 96368; 99285; J3370; J3490; J7040; Q9967

== ENCOUNTER 2020-06-03 10:03 | Emergency (ER) | payer SELFPAY ==
[~2020-06-03] VITALS: Ht 165.1 cm; Wt 94.0 kg
--- NOTE | 2020-06-03 10:05 | PHYS DOC ---
Past History Past Medical History: No Pertinent History Past Surgical History: Other Additional Past Surgical Histo: 9 EAR SURGERYS AND cleft palate Alcohol Use: Rarely Drug Use: None General Adult EDM: Chief Complaint: HEAD INJURY/TRAUMA HPI: HPI: Patient is a 30 year old male who presents for evaluation of left-sided head injury after fall. Patient states he was moving boxes in his house when he fell and hit his head on a dresser. He states he was knocked out and found himself on the floor. Patient has some mild paraspinal neck pain and a moderate headach e. Furthermore patient has recurrent nausea since the injury. This occurred earlier today. There is no significant visual signs of injury however. Patient does have a history of multiple ear surgeries in the past. Patient has been having some left ear pain before this fall. He is concerned about a possible infection. He states he called his family doctor and was advised they could not get him in to be seen. 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 Review of Systems: Review of Systems: Constitutional: Denies fever or chills Eyes: Denies change in visual acuity HENT: Denies nasal congestion or sore throat Respiratory: Denies cough or shortness of breath Cardiovascular: Denies chest pain or edema GI: Denies abdominal pain, has nausea but no vomiting, bloody stools or diarrhea : Denies dysuria Musculoskeletal: Denies back pain or joint pain, mild paraspinal neck pain Integument: Denies rash Neurologic: has headache, but no focal weakness or sensory changes Endocrine: Denies polyuria or polydipsia Lymphatic: Denies swollen glands Psychiatric: Denies depression or anxiety Heart Score: Risk Factors: Risk Factors: DM, Current or recent (<one month) smoker, HTN, HLP, family history of CAD, obesity. Risk Scores: Score 0 - 3: 2.5% MACE over next 6 weeks - Discharge Home Score 4 - 6: 20.3% MACE over next 6 weeks - Admit for Clinical Observation Score 7 - 10: 72.7% MACE over next 6 weeks - Early Invasive Strategies Allergies: Allergies: Allergies Coded Allergies Type Severity Reaction Last Updated Verified amoxicillin Allergy Intermediate 08/30/19 Yes cefaclor Allergy Intermediate 08/30/19 Yes clavulanic acid Allergy Intermediate 08/30/19 Yes vancomycin Allergy Intermediate RED WELTS ON ABDOMEN 02/24/20 Yes Physical Exam: PE: Constitutional: Well developed, well nourished, mild acute distress, non-toxic appearance. [] HENT: Normocephalic, no visible signs of trauma, bilateral external ears normal, oropharynx moist, no oral exudates, nose normal, TM canal narrowed left side, no discharge. [] Eyes: PERRL, EOMI, conjunctiva normal, no discharge. [] Neck: Normal range of motion, no tenderness, supple, no stridor. [] Cardiovascular:Heart rate regular rhythm, no murmur [] Lungs & Thorax: Bilateral breath sounds clear to auscultation [] Abdomen: Bowel sounds normal, soft, no tenderness. [] Skin: Warm, dry, no erythema, no rash. [] Back: No tenderness. [] Extremities: No tenderness, no cyanosis, ROM intact, no edema. [] Neurologic: Alert and oriented X 3, normal motor function, normal sensory function, no focal deficits noted. [] Psychologic: Affect normal, judgement normal, mood normal. [] EKG: EKG: [] Radiology/Procedures: Radiology/Procedures: [place] [address] IMAGING REPORT Signed PATIENT: CALLIE CHOOUNT: [id number] : 1990 LOCATION: ER AGE: 30 SEX: M EXAM STATUS: REG ER ORD. PHYSICIAN: YAMIL BROWN DO REASON: head injury with LOC, neck pain PROCEDURE: CT HEAD AND CERVICAL SPINE WO PQRS Compliance Statement: One or more of the following individualized dose reduction techniques were utilized for this examination: 1. Automated exposure control 2. Adjustment of the mA and/or kV according to patient size 3. Use of iterative reconstruction technique CT HEAD AND CERVICAL SPINE WITHOUT CONTRAST History: Reason: head injury with LOC, neck pain / Comparison: None. Procedure: Axial images are obtained of the head from the skull base through the vertex without IV contrast. Noncontrast helical CT of the cervical spine was performed. Axial, sagittal, and coronal reconstructions were obtained. Findings: The ventricles and sulci are normal for the patient's age. No mass-effect, midline shift, hemorrhage or obvious acute infarction is identified. Basilar cisterns are patent. Bone windows demonstrate no significant calvarial abnormality. The visualized paranasal sinuses are clear. Left mastoid air cells are partially opacified. There is narrowing of the left external auditory canal. There is no evidence of acute fracture or acute malalignment of the cervical spine. 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 The facet joints at this level are mostly fused. 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 There is a narrowed disc space. The vertebral bodies are taller than surrounding levels. There are no perched or jumped facets. The alignment is maintained. There is mild endplate spurring of C3/C4, C4/C5, C5/C6, and C6/C7. Visualized soft tissues of the neck demonstrate no significant abnormalities. The visualized lung apices are clear. IMPRESSION: 1. No acute intracranial abnormality. 2. No acute fracture of the cervical spine. Electronically signed by: Steve Rowe MD (06/03/2020 10:56 AM) [id number] DICTATED AND SIGNED BY: STEVE ROWE MD DATE: 06/03/20 1056 CC: JOHANNA GARCIA; YAMIL BROWN DO ~ [] Course & Med Decision Making: Course & Med Decision Making Pertinent Labs and Imaging studies reviewed. (See chart for details) [] Dragon Disclaimer: Nicolas Disclaimer: This electronic medical record was generated, in whole or in part, using a voice recognition dictation system. 1104 stable, patient reassessed and is lucid awake and appropriate. Patient likely experienced a concussion. Patient is a prior history of concussions. CT scan head and cervical spine showed chronic changes but no acute fracture or brain bleed. Patient has no focal deficits or lateralizing signs. Patient demonstrated a steady gait. Patient medically cleared for discharge and head injury instructions given Departure Departure: Impression: Primary Impression: Concussion Qualified Codes: S06.0X1A - Concussion with loss of consciousness of 30 minutes or less, initial encounter Additional Impressions: Head contusion Qualified Codes: S00.83XA - Contusion of other part of head, initial encounter Cervical strain, acute Qualified Codes: S16.1XXA - Strain of muscle, fascia and tendon at neck level, initial encounter Disposition: 01 HOME/RESIDENCE PRIOR TO ADM Condition: STABLE Referrals: PCPJOHANNA (PCP) ANNA KESSLER MD Patient Instructions: Cervical Strain and Sprain with Rehab-Sports[facility], Concussion and Brain Injury Additional Instructions: You likely had a concussion since she lost consciousness. Follow head injury instructions. Rest ice and elevate the injured areas. Take [id number] Tylenol or ibuprofen as directed for symptom relief Justification of Admission: Justification of Admission: Justification of Admission Dx: N/A YAMIL BROWN DO Jun 03, 2020 10:05
[2020-06-03 10:11] VITALS: BP 133/77
[2020-06-03] MEDS ORDERED: ACETAMINOPHEN 325 MG TABLET PO ONE (10:15)
[2020-06-03] MEDS ORDERED: ONDANSETRON ODT 4 MG TAB.RAPDIS PO ONE (10:15)
--- NOTE | 2020-06-03 10:59 | RAD ---
RS Compliance Statement: One or more of the following individualized dose reduction techniques were utilized for this examination: 1. Automated exposure control 2. Adjustment of the mA and/or kV according to patient size 3. Use of iterative reconstruction technique CT HEAD AND CERVICAL SPINE WITHOUT CONTRAST History: Reason: head injury with LOC, neck pain / Comparison: None. Procedure: Axial images are obtained of the head from the skull base through the vertex without IV contrast. Noncontrast helical CT of the cervical spine was performed. Axial, sagittal, and coronal reconstructions were obtained. Findings: The ventricles and sulci are normal for the patient's age. No mass-effect, midline shift, hemorrhage or obvious acute infarction is identified. Basilar cisterns are patent. Bone windows demonstrate no significant calvarial abnormality. The visualized paranasal sinuses are clear. Left mastoid air cells are partially opacified. There is narrowing of the left external auditory canal. There is no evidence of acute fracture or acute malalignment of the cervical spine. 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 The facet joints at this level are mostly fused. 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 There is a narrowed disc space. The vertebral bodies are taller than surrounding levels. There are no perched or jumped facets. The alignment is maintained. There is mild endplate spurring of C3/C4, C4/C5, C5/C6, and C6/C7. Visualized soft tissues of the neck demonstrate no significant abnormalities. The visualized lung apices are clear. IMPRESSION: 1. No acute intracranial abnormality. 2. No acute fracture of the cervical spine. Electronically signed by: Steve Rowe MD (06/03/2020 10:56 AM) [id number]
== END 2020-06-03 11:13 | disposition home or self-care (01) ==
LOC: ER 10:03
DX: S06.0X0A Concussion without loss of consciousness, initial encounter (principal); S16.1XXA Strain of muscle, fascia and tendon at neck level, initial encounter; H92.02 Otalgia, left ear; Z88.1 Allergy status to other antibiotic agents; W18.09XA Striking against other object with subsequent fall, initial encounter; Y93.89 Activity, other specified; Y92.89 Other specified places as the place of occurrence of the external cause; Y99.8 Other external cause status
CPT/HCPCS: 70450; 72125; 99285; Q0162

== ENCOUNTER 2020-06-19 03:18 | Emergency (ER) | payer SELFPAY ==
[~2020-06-19] VITALS: Ht 165.1 cm; Wt 88.6 kg
[2020-06-19 03:50] LABS: CALCIUM 9.1 mg/dL (8.5-10.1); POTASSIUM 3.9 mmol/L (3.5-5.1)
[2020-06-19 03:54] LABS: BASO # 0.1 x10^3/uL (0.0-0.2); BASO % 1 % (0-3); EOS # 0.2 x10^3/uL (0.0-0.7); EOS % 2 % (0-3); HEMATOCRIT 44.8 % (39.0-53.0); HEMOGLOBIN 15.1 g/dL (13.0-17.5); LYMPH # 2.8 x10^3/uL (1.0-4.8); LYMPH % 28 % (24-48); MEAN CORPUSCULAR HEMOGLOBIN 28 pg (25-35); MEAN CORPUSCULAR HGB CONC 34 g/dL (31-37); MEAN CORPUSCULAR VOLUME 84 fL (79-100); MONO # 0.9 x10^3/uL (0.0-1.1); MONO % 9 % (0-9); NEUT # 6.1 x10^3uL (1.8-7.7); NEUT % 61 % (31-73); PLATELET COUNT 252 x10^3/uL (140-400); RED BLOOD COUNT 5.37 x10^6/uL (4.30-5.70); RED CELL DISTRIBUTION WIDTH 14.3 % (11.5-14.5)
--- NOTE | 2020-06-19 03:58 | RAD ---
INDICATION: Reason: CODE STROKE / Spl. Instructions: / History: COMPARISON: June 03, 2020 TECHNIQUE: Axial CT images obtained through the head without intravenous contrast. One or more of the following individualized dose reduction techniques were utilized for this examination: 1. Automated exposure control; 2. Adjustment of the mA and/or kV according to patient size; 3. Use of iterative reconstruction technique. FINDINGS: No intracranial hemorrhage. No midline shift. Basal cisterns patent. Ventricles and sulci are unremarkable. No acute osseous abnormality. Orbits and paranasal sinuses unremarkable. IMPRESSION: * No acute intracranial hemorrhage. Report called to the ER at 3:50 AM. * There is some fluid in the left external auditory canal and middle ear. Would correlate with symptoms in the region to ensure that there is not a otitis externa and otitis media. Some of the adjacent mastoid air cells are also opacified which could be from congestion or mastoiditis. Electronically signed by: Murphy Fernandez MD (06/19/2020 3:56 AM) [id number]
[2020-06-19] MEDS ORDERED: IOHEXOL 350 MG/ML 100 ML VIAL. IV ONE (04:00)
[2020-06-19] MEDS ORDERED: CONTRAST GIVEN. MC PRN (04:00)
--- NOTE | 2020-06-19 04:07 | PHYS DOC ---
General Adult EDM: Chief Complaint: NEURO SYMPTOMS/DEFICITS HPI: HPI: 30-year-old male presents via EMS as a code stroke. The patient was reported to have left-sided weakness and facial droop on the left that started around 1 AM. The patient was having an argument with significant other when he started to notice a numbness/sleepy sensation on the left leg and then the left arm. The patient just after falling asleep so he went to stand up and he immediately collapsed. He is unable to lift his left arm or left leg. He also has a left- sided facial droop. He states that he has decreased sensation on the left side of his face and arm. He has decreased but present sensation in the left lower leg down to the knee. Below that he does not feel pinprick or light touch. Patient states he is never had symptoms like this before. He denies alcohol or drug use. 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 Review of Systems: Review of Systems: Constitutional: Denies fever or chills Eyes: Denies change in visual acuity HENT: Denies nasal congestion or sore throat Respiratory: Denies cough or shortness of breath Cardiovascular: Denies chest pain or edema GI: Denies abdominal pain, nausea, vomiting, bloody stools or diarrhea : Denies dysuria Musculoskeletal: Denies back pain or joint pain Integument: Denies rash Neurologic: Left-sided weakness and facial droop Endocrine: Denies polyuria or polydipsia Lymphatic: Denies swollen glands Psychiatric: Denies depression or anxiety Heart Score: Risk Factors: Risk Factors: DM, Current or recent (<one month) smoker, HTN, HLP, family history of CAD, obesity. Risk Scores: Score 0 - 3: 2.5% MACE over next 6 weeks - Discharge Home Score 4 - 6: 20.3% MACE over next 6 weeks - Admit for Clinical Observation Score 7 - 10: 72.7% MACE over next 6 weeks - Early Invasive Strategies Physical Exam: PE: Constitutional: Well developed, well nourished, no acute distress, non-toxic appearance. [] HENT: Normocephalic, atraumatic, bilateral external ears normal, oropharynx moist, no oral exudates, nose normal. [] Eyes: PERRLA, EOMI, conjunctiva normal, no discharge. [] Neck: Normal range of motion, no tenderness, supple, no stridor. [] Cardiovascular: Heart rate regular rhythm, no murmur [] Lungs & Thorax: Bilateral breath sounds clear to auscultation [] Abdomen: Bowel sounds normal, soft, no tenderness, no masses, no pulsatile masses. [] Skin: Warm, dry, no erythema, no rash. [] Back: No tenderness, no CVA tenderness. [] Extremities: No tenderness, no cyanosis, no clubbing, ROM intact, no edema. [] Neurologic: Alert and oriented X 3. See NIHSS [] Psychologic: Affect normal, judgement normal, mood normal. [] Current Patient Data: Labs: Laboratory Tests Test 06/19/20 03:20 White Blood Count 10.0 x10^3/uL (4.0-11.0) Red Blood Count 5.37 x10^6/uL (4.30-5.70) Hemoglobin 15.1 g/dL (13.0-17.5) Hematocrit 44.8 % (39.0-53.0) Mean Corpuscular Volume 84 fL (79-100) Mean Corpuscular Hemoglobin 28 pg (25-35) Mean Corpuscular Hemoglobin Concent 34 g/dL (31-37) Red Cell Distribution Width 14.3 % (11.5-14.5) Platelet Count 252 x10^3/uL (140-400) Neutrophils (%) (Auto) 61 % (31-73) Lymphocytes (%) (Auto) 28 % (24-48) Monocytes (%) (Auto) 9 % (0-9) Eosinophils (%) (Auto) 2 % (0-3) Basophils (%) (Auto) 1 % (0-3) Neutrophils # (Auto) 6.1 x10^3uL (1.8-7.7) Lymphocytes # (Auto) 2.8 x10^3/uL (1.0-4.8) Monocytes # (Auto) 0.9 x10^3/uL (0.0-1.1) Eosinophils # (Auto) 0.2 x10^3/uL (0.0-0.7) Basophils # (Auto) 0.1 x10^3/uL (0.0-0.2) Prothrombin Time 9.8 SEC (9.4-11.4) Prothrombin Time INR 0.9 (0.9-1.1) Activated Partial Thromboplast Time 23 SEC (23-33) EKG: EKG: Sinus rhythm, rate 98, normal axis, no ST elevation or depression. [] Radiology/Procedures: Radiology/Procedures: [] Impressions: INDICATION: Reason: CODE STROKE / Spl. Instructions: / History: COMPARISON: June 03, 2020 TECHNIQUE: Axial CT images obtained through the head without intravenous contrast. One or more of the following individualized dose reduction techniques were utilized for this examination: 1. Automated exposure control; 2. Adjustment of the mA and/or kV according to patient size; 3. Use of iterative reconstruction technique. FINDINGS: No intracranial hemorrhage. No midline shift. Basal cisterns patent. Ventricles and sulci are unremarkable. No acute osseous abnormality. Orbits and paranasal sinuses unremarkable. IMPRESSION: * No acute intracranial hemorrhage. Report called to the ER at 3:50 AM. * There is some fluid in the left external auditory canal and middle ear. Would correlate with symptoms in the region to ensure that there is not a otitis externa and otitis media. Some of the adjacent mastoid air cells are also opacified which could be from congestion or mastoiditis. Electronically signed by: Benton Fernandez MD (06/19/2020 3:56 AM) [id number] DICTATED AND SIGNED BY: BENTON FERNANDEZ MD DATE: 06/19/20 0356 CC: ROBBIE FISCHER DO; PCP,NO ~ INDICATION: Reason: CODE STROKE, OMNI 350, 75ml / Spl. Instructions: / History: COMPARISON: None. TECHNIQUE: Axial CT images obtained through the head and neck arterial vasculature with intravenous contrast. 3D images were processed per protocol. Estimates of carotid stenosis based on criteria that correlates with NASCET. One or more of the following individualized dose reduction techniques were utilized for this examination: 1. Automated exposure control; 2. Adjustment of the mA and/or kV according to patient size; 3. Use of iterative reconstruction technique. FINDINGS: Neck Angio: The vertebral arteries are patent. The common carotid arteries and internal carotid arteries are patent. Right vertebral artery is small in caliber. Brain Angio: Proximal anterior cerebral arteries are patent. Proximal posterior cerebral arteries are patent. Not well seen distally secondary to small size. Proximal middle cerebral arteries are patent. Basilar artery is patent. Other Findings: There is some bowing of the nasal septum. Mucosal thickening right maxillary sinus. Odontogenic disease. Degenerative changes the spine. More than typically seen for the patient's age with neural foraminal stenosis identified. Scoliotic curvature. Prominent size of the pharyngeal tonsils. Also some prominence of adenoid tonsils. Osseous fusion of C1 to the occipital condyle with chronic appearing deformity of C2. There is also osseous fusion of C2 and C3 vertebral bodies and facet joints. IMPRESSION: * Vertebral, internal and common carotid arteries are patent within the neck. * Proximal middle, anterior and posterior cerebral arteries are patent. If there is high concern for stroke MRI could better assess for a more peripheral region of ischemia that would not be well seen on CT. 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 There is also some degenerative changes which is more than typically seen for the patient's age. * Prominence of the pharyngeal and adenoid tonsils. Could be from hyperplasia unless the patient is having symptoms of tonsillitis. * Odontogenic disease. * Report called to the ER at 4:20 AM FOR INTERNAL CODING PURPOSES RESULT CODE: (C) Electronically signed by: Benton Fernandez MD (06/19/2020 4:22 AM) [id number] DICTATED AND SIGNED BY: BENTON FERNANDEZ MD DATE: 06/19/20 042 CC: ROBBIE FISCHER DO; [facility]; PCP,NO ~ Course & Med Decision Making: Course & Med Decision Making Pertinent Labs and Imaging studies reviewed. (See chart for details) The patient is right at the 3-hour window for TPA, but within the 4.5 hour window. He has significant deficits with an NIH of 10. I will discuss TPA with the patient. I explained the benefits and risks with the patient. He stated verbal understanding. He has given me verbal permission for TPA administration. I have ordered alteplase. The CT angiogram of the head and neck is not shown any major vessel occlusion. See official report for more details. I will transfer the patient to [facility]. I spoke with Dr. Venegas and he has accepted the patient for transfer and admission. He will go to the ICU. 57 minutes of critical care time was spent on this patient exclusive of other billable procedures. [] Dragon Disclaimer: Dragon Disclaimer: This electronic medical record was generated, in whole or in part, using a voice recognition dictation system. NIH Stroke Scale: NIH Stroke Scale Response (Comments) Value Level of Consciousness: 0 Alert/Responsive 0 LOC Questions: 0 Answers both correctly 0 LOC Commands: 0 Performs both tasks 0 Best Gaze: 0 Normal 0 Visual: 0 No visual loss 0 Facial Palsy: 1 Minor paralysis 1 Motor - Left Arm 4 No movement 4 Motor - Right Arm 0 No drift 0 Motor - Left Leg 4 No movement 4 Motor: Right Leg 0 No drift 0 Limb Ataxia: 0 Absent 0 Sensory: 1 Mid to moderate loss 1 Best Language: 0 Normal 0 Dysathria: 0 Normal 0 Extinction and Inattention: 0 Normal 0 Total 10 Departure Departure: Impression: Primary Impression: Left-sided weakness Additional Impression: Facial droop Disposition: 02 XFER SHT-TRM HOSP Condition: STABLE Referrals: PCP,NO (PCP) Justification of Admission: Justification of Admission: Justification of Admission Dx: Yes Stroke - Ischemic: Stroke-Ischemic ROBBIE FISCHER DO Jun 19, 2020 04:07
[2020-06-19] MEDS ORDERED: ALTEPLASE 100 MG IV ONE (04:12)
[2020-06-19 04:14] LABS: ALBUMIN 3.8 g/dL (3.4-5.0); ALBUMIN/GLOBULIN RATIO 0.8 (1.0-1.7); TOTAL BILIRUBIN 0.2 mg/dL (0.2-1.0); TOTAL PROTEIN 8.4 g/dL (6.4-8.2)
[2020-06-19] MEDS ORDERED: ALTEPLASE 8 MG IV ONE (04:15)
[2020-06-19] MEDS ORDERED: ALTEPLASE 0 MG IV SCH (04:15)
[2020-06-19] MEDS ORDERED: LABETALOL 20 MG/4 ML DISP.SYRIN. IV PRN (04:15)
[2020-06-19] MEDS ORDERED: ALTEPLASE 0 MG IV ONE (04:15)
[2020-06-19] MEDS ORDERED: ALTEPLASE 100 MG VIAL IV ONE ×2 (04:20)
[2020-06-19] MEDS ORDERED: ALTEPLASE IV SCH (04:45)
--- NOTE | 2020-06-19 04:51 | RAD ---
INDICATION: Reason: CODE STROKE, WEAKNESS / Spl. Instructions: / History: COMPARISON: October 19, 2019 FINDINGS: Single view of chest obtained. Enlarged cardiomediastinal silhouette with hypoexpanded exam the lungs. There is some mild interstitial prominence bilaterally as well as groundglass opacity IMPRESSION: * Hypoexpanded exam with mild interstitial and groundglass opacity. This could be secondary to crowding of the lung markings from hypoexpansion although mild edema or interstitial infiltrate is not excluded given this finding. Electronically signed by: Murphy Fernandez MD (06/19/2020 4:49 AM) [id number]
[2020-06-19] MEDS ORDERED: IV NORMAL SALINE 1,000ML 1,000 ML IV ONE (05:00)
[2020-06-19] MEDS ORDERED: IV NORMAL SALINE 50ML 50 ML IV ONE (05:15)
[2020-06-19 06:00] VITALS: BP 120/67
--- NOTE | 2020-06-19 06:03 | EKG ---
[address] [address] Test Date: 2020-06-19 Test Time: 03:46:15 Pat Name: CALLIE CHO Department: Room: Gender: M Bailiff: : 1990 Requested By: ROBBIE FISCHER Order Number: [id number] Reading MD: Lino James MD Measurements Intervals [place] Rate: 98 P: 31 [place]: 168 QRS: 6 QRSD: 106 T: 19 QT: 334 QTc: 428 Interpretive Statements SINUS RHYTHM Electronically Signed On 06-19-2020 9:14:37 CDT by Lino James MD
--- NOTE | 2020-06-20 08:13 | RAD ---
INDICATION: Reason: CODE STROKE, OMNI 350, 75ml / Spl. Instructions: / History: COMPARISON: None. TECHNIQUE: Axial CT images obtained through the head and neck arterial vasculature with intravenous contrast. 3D images were processed per protocol. Estimates of carotid stenosis based on criteria that correlates with NASCET. One or more of the following individualized dose reduction techniques were utilized for this examination: 1. Automated exposure control; 2. Adjustment of the mA and/or kV according to patient size; 3. Use of iterative reconstruction technique. FINDINGS: Neck Angio: The vertebral arteries are patent. The common carotid arteries and internal carotid arteries are patent. Right vertebral artery is small in caliber. Brain Angio: Proximal anterior cerebral arteries are patent. Proximal posterior cerebral arteries are patent. Not well seen distally secondary to small size. Proximal middle cerebral arteries are patent. Basilar artery is patent. Other Findings: There is some bowing of the nasal septum. Mucosal thickening right maxillary sinus. Odontogenic disease. Degenerative changes the spine. More than typically seen for the patient's age with neural foraminal stenosis identified. Scoliotic curvature. Prominent size of the pharyngeal tonsils. Also some prominence of adenoid tonsils. Osseous fusion of C1 to the occipital condyle with chronic appearing deformity of C2. There is also osseous fusion of C2 and C3 vertebral bodies and facet joints. IMPRESSION: * Vertebral, internal and common carotid arteries are patent within the neck. * Proximal middle, anterior and posterior cerebral arteries are patent. If there is high concern for stroke MRI could better assess for a more peripheral region of ischemia that would not be well seen on CT. 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 There is also some degenerative changes which is more than typically seen for the patient's age. * Prominence of the pharyngeal and adenoid tonsils. Could be from hyperplasia unless the patient is having symptoms of tonsillitis. * Odontogenic disease. * Report called to the ER at 4:20 AM FOR INTERNAL CODING PURPOSES RESULT CODE: (C) MTDD
== END 2020-06-19 06:13 | disposition short-term general hospital (02) ==
LOC: MERGE 03:18 → ER 03:18
DX: R53.1 Weakness (principal); R20.0 Anesthesia of skin
CPT/HCPCS: 36415; 37195; 70450; 70496; 70498; 71045; 80053; 84484; 85025; 85610; 85730; 93005; 96360; 99285; J2997; Q9967

== ENCOUNTER 2020-11-10 17:53 | Emergency (ER) | payer SELFPAY ==
[~2020-11-10] VITALS: Ht 165.1 cm; Wt 87.2 kg
[~2020-11-10 17:53] MED LIST changes: -CLIN300C8 PO; +CLIN300C9 PO
--- NOTE | 2020-11-10 17:57 | PHYS DOC ---
Past History Past Medical History: No Pertinent History, Gallstones, GERD Past Medical History Hearing deficits Past Surgical History: Other Additional Past Surgical Histo: 9 EAR SURGERYS AND cleft palate Alcohol Use: Rarely Drug Use: None General Adult HPI: HPI: ".. I been sick since maybe .. my stomach area, nausea..." Patient is a 30 year old male who presents with above hx and complaints abdomen pain. No travel, bad food or specific ill contacts. No dark or stool. No recent travel. No history of trauma.. Patient localizes pain in epigastric and right upper quadrant area. Patient has been evaluated before for abdomen pain, biliary colic, hepatic steatosis, gallbladder sludge, constipation. Patient has had GERD in the past.-Magnesium and dehydration last such visit was on August 30, 2019. Patient states nothing he does relieve the discomfort. Deep breath makes the discomfort worse. Review of Systems: Review of Systems: Constitutional: Denies fever or chills Eyes: Denies change in visual acuity HENT: Denies nasal congestion or sore throat Respiratory: Denies cough or shortness of breath Cardiovascular: Denies chest pain or edema GI: Complains of abdominal pain, nausea,. Denies vomiting, bloody stools or diarrhea : Denies dysuria Musculoskeletal: Denies back pain or joint pain Integument: Denies rash Neurologic: Denies headache, focal weakness or sensory changes Endocrine: Denies polyuria or polydipsia Lymphatic: Denies swollen glands Psychiatric: Denies depression or anxiety Family History: Family History: Noncontributory to presentation Current Medications: Current Meds: See nursing for home meds Allergies: Allergies: Allergies Coded Allergies Type Severity Reaction Last Updated Verified amoxicillin Allergy Intermediate 08/30/19 Yes cefaclor Allergy Intermediate 08/30/19 Yes clavulanic acid Allergy Intermediate 08/30/19 Yes vancomycin Allergy Intermediate RED WELTS ON ABDOMEN 02/24/20 Yes Penicillins Allergy Unknown 06/03/20 Yes Physical Exam: PE: Constitutional: Moderate acute distress, non-toxic appearance. [] HENT: Normocephalic, atraumatic, bilateral external ears normal, oropharynx moist, no oral exudates, nose normal. [] Eyes: PERRLA, EOMI, conjunctiva normal, no discharge. [] Neck: Normal range of motion, no tenderness, supple, no stridor. [] Cardiovascular:Heart rate regular rhythm, no murmur [] Lungs & Thorax: Bilateral breath sounds equal apex on auscultation [] Abdomen: Bowel sounds normal, soft, epigastric and right upper quadrant tenderness, no masses, no pulsatile masses. Surgery scar] Skin: Warm, dry, no erythema, no rash. [] Back: No tenderness, no CVA tenderness. [] Extremities: No tenderness, no cyanosis, no clubbing, ROM intact, no edema. [No psoas sign. Neurologic: Alert and oriented X 3, normal motor function, normal sensory function, no focal deficits noted. [] Psychologic: Affect anxious, judgement normal, mood normal. [] EKG: EKG: My interpretation of EKG shows a sinus rhythm 86 bpm. No findings of acute STEMI with contralateral changes. There are some baseline variability due to patient movement [] Radiology/Procedures: Radiology/Procedures: [address] [address] IMAGING REPORT Signed PATIENT: CALLIE CHO SACCOUNT: [id number] : 1990 LOCATION: ER AGE: 30 SEX: M EXAM STATUS: REG ER ORD. PHYSICIAN: JOANA VASQUEZ MD REASON: Abdomen pain Omni 300 75cc PROCEDURE: CT ABD PELV W/ORAL&IV CONTRAST Exam performed: CT scan of the abdomen and pelvis with contrast Clinical Indication:Left pelvic pain Date of Service:11/10/2020 comparison: CT abdomen and pelvis from 10/19/2019 Technique: Contiguous helical acquisitions are obtained from the lung bases to the pelvis during intravenous administration of [75 mL of Isovue-320]. In addition oral contrast was also given. Sagittal and coronal reformatted images were obtained and reviewed. CT abdomen and pelvis findings: The lung bases appear essentially clear. Visualized heart is normal. Mild hepatic steatosis without focal lesions. The spleen, pancreas and gallbladder appear normal. Both adrenal glands and bilateral kidneys are normal in size with symmetric excretion of contrast via both kidneys. Aorta is normal in caliber. There is a small approximately 7 mm aortocaval lymph node. This small bowel loops are nondilated and unremarkable. There are several mildly enlarged mesenteric lymph nodes at the root of mesentery, the largest lymph node measures up to 8 mm in short axis dimension visualized appendix is normal. No inflammatory changes seen in the right lower quadrant. There is diffuse scat tered stool predominantly in the rectosigmoid region. The urinary bladder is distended. Prostate gland, seminal vesicles and rectum appear normal. Sagittal and coronal reformatted images were obtained and reviewed which demonstrate no additional findings. Impression abdomen and pelvis : 1. No acute intra-abdominal or pelvic process is detected. 2. Diffuse scattered stool throughout the colon including rectosigmoid region. Correlate clinically for constipation. 3. Mildly enlarged mesenteric and retroperitoneal lymph nodes of unclear clinical significance. If indicated short-term interval follow-up CT of the abdomen and pelvis may be obtained to ensure interval resolution. PQRS Compliance Statement: One or more of the following individualized dose reduction techniques were utilized for this examination: 1. Automated exposure control 2. Adjustment of the mA and/or kV according to patient size 3. Use of iterative reconstruction technique Electronically signed by: Izabela Martinez MD (11/10/2020 9:56 PM) [facility] DICTATED AND SIGNED BY: IZABELA MARTINEZ MD DATE: 11/10/202143 CC: JOANA VASQUEZ MD; PCP,NO ~MTH0 0 [][place] [address] IMAGING REPORT Signed PATIENT: CALLIE CHOOUNT: [id number] : 1990 LOCATION: ER AGE: 30 SEX: M EXAM STATUS: REG ER ORD. PHYSICIAN: JOANA VASQUEZ MD REASON: Abdomen pain, nausea x 3 days PROCEDURE: ACUTE ABDOMEN SERIES ACUTE ABDOMEN SERIES Indication: Abdominal pain and nausea for 3 days Date of service:11/10/2020 .Comparison: None acute abdominal series from 10/19/2019 Procedure: PA chest and upright and supine abdomen views are obtained. Findings: Chest: Cardiac size and pulmonary vessels are normal. Pneumonia, pneumothorax or pleural effusion are not present. Bones are normal Abdomen: No evidence of free air is present. Gas pattern is normal . Impression: Normal Chest . Normal abdomen without obstruction, ileus or free air . If indicated, CT scan of the abdomen would be useful for further evaluation. Electronically signed by: Izabela Martinez MD (11/10/2020 7:17 PM) [facility] DICTATED AND SIGNED BY: IZABELA MARTINEZ MD DATE: 11/10/201916 CC: JOANA VASQUEZ MD; PCP,NO ~MTH0 0 Heart Score: HEART Score for Chest Pain: HEART Score for Chest Pain Response (Comments) Value History Slighlty/Non-Suspicious 0 ECG Normal 0 Age < 45 0 Risk Factors 1 or 2 Risk Factors 1 Troponin < Normal Limit 0 Total 1 Risk Factors: Risk Factors: DM, Current or recent (<one month) smoker, HTN, HLP, family history of CAD, obesity. Risk Scores: Score 0 - 3: 2.5% MACE over next 6 weeks - Discharge Home Score 4 - 6: 20.3% MACE over next 6 weeks - Admit for Clinical Observation Score 7 - 10: 72.7% MACE over next 6 weeks - Early Invasive Strategies Course & Med Decision Making: Course & Med Decision Making Pertinent Labs and Imaging studies reviewed. (See chart for details) Patient remain on clear fluid diet for the next 24 to 48 hours. No solids. No milk products. Allow bowel rest. Take Tylenol and ibuprofen for pain. May take Zofran 8 mg at 4 times a day for nausea and vomiting. Take Flagyl 500 mg 3 times a day and Cipro 500 mg twice a day. Follow-up pending labs and Covid testing. Self isolate. Wear a mask that covers nose and mouth at all times when away from home. Reexam if no improvement the next 2 to 3 days. Follow-up with primary must. Impression: 1. Abdomen pain 2. Mesenteric adenopathy 3. Leukocytosis 11.6 4. Elevated AST, ALT, Alkphos- 48/174/144 5 Viral Syndrome 6. Mild elevation D-dimer [] Dragon Disclaimer: Dragon Disclaimer: This electronic medical record was generated, in whole or in part, using a voice recognition dictation system. Departure Departure: Referrals: PCP,JOHANNA (PCP) Scripts Ondansetron Hcl (ZOFRAN) 4 Mg Tablet 8 MG PO QIDPRN for nv, #30 TAB Prov: JOANA VASQUEZ MD 11/10/20 Metronidazole (FLAGYL) 500 Mg Tablet 500 MG PO TID for mesentericadenopathy for 10 Days, #30 TAB Prov: JOANA VASQUEZ MD 11/10/20 Ciprofloxacin (CIPRO) 500 Mg/5 Ml Nichole.mc.rec 500 MG PO BID for mesenteric adenopathyh for 7 Days, MISC Prov: JOANA VASQUEZ MD 11/10/20 Nicolas Disclaimer This chart was dictated in whole or in part using Voice Recognition software in a busy, high-work load, and often noisy Emergency Department environment. It may contain unintended and wholly unrecognized errors or omissions. Dragon Disclaimer This chart was dictated in whole or in part using Voice Recognition software in a busy, high-work load, and often noisy Emergency Department environment. It may contain unintended and wholly unrecognized errors or omissions. JOANA VASQUEZ MD Nov 10, 2020 17:57
[2020-11-10] MEDS ORDERED: IV RINGERS SOLUTION,LACTATED 1,000 ML IV SCH (18:00)
[2020-11-10 18:11] VITALS: BP 131/85
[2020-11-10] MEDS ORDERED: ONDANSETRON PF 4 MG/2 ML VIAL. IVP ONE (18:15)
[2020-11-10] MEDS ORDERED: FAMOTIDINE 20 MG/2 ML VIAL IVP ONE (18:15)
[2020-11-10] MEDS ORDERED: KETOROLAC 30 MG/ML VIAL. IVP ONE (18:15)
[2020-11-10] MEDS ORDERED: MAGNESIUM HYDROXIDE 2,400 MG/30 ML ORAL.SUSP. PO ONE (18:15)
[2020-11-10 18:47] LABS: BASO # 0.1 x10^3/uL (0.0-0.2); BASO % 1 % (0-3); EOS # 0.1 x10^3/uL (0.0-0.7); EOS % 1 % (0-3); HEMATOCRIT 47.7 % (39.0-53.0); HEMOGLOBIN 15.8 g/dL (13.0-17.5); LYMPH # 2.3 x10^3/uL (1.0-4.8); LYMPH % 20 % (24-48); MEAN CORPUSCULAR HEMOGLOBIN 28 pg (25-35); MEAN CORPUSCULAR HGB CONC 33 g/dL (31-37); MEAN CORPUSCULAR VOLUME 84 fL (79-100); MONO # 0.9 x10^3/uL (0.0-1.1); MONO % 8 % (0-9); NEUT # 8.2 x10^3uL (1.8-7.7); NEUT % 71 % (31-73); PLATELET COUNT 250 x10^3/uL (140-400); RED BLOOD COUNT 5.66 x10^6/uL (4.30-5.70); RED CELL DISTRIBUTION WIDTH 14.3 % (11.5-14.5); WHITE BLOOD COUNT 11.6 x10^3/uL (4.0-11.0)
[2020-11-10 18:54] LABS: BARBITURATES NEG (NEG); BENZODIAZEPINES NEG (NEG); CANNABINOIDS NEG (NEG); COCAINE NEG (NEG); METHADONE NEG (NEG); OPIATES NEG (NEG); PHENCYCLIDINE NEG (NEG)
[2020-11-10 18:56] LABS: AMPHETAMINE/METHAMPHETAMINE NEG (NEG)
[2020-11-10 19:00] LABS: ALBUMIN 3.9 g/dL (3.4-5.0); CALCIUM 9.1 mg/dL (8.5-10.1); CREATININE 0.9 mg/dL (0.7-1.3); DIRECT BILIRUBIN 0.1 mg/dL (0.0-0.2); GFR 100.5; TOTAL BILIRUBIN 0.3 mg/dL (0.2-1.0); TOTAL PROTEIN 8.5 g/dL (6.4-8.2)
--- NOTE | 2020-11-10 19:20 | RAD ---
ACUTE ABDOMEN SERIES Indication: Abdominal pain and nausea for 3 days Date of service:11/10/2020 .Comparison: None acute abdominal series from 10/19/2019 Procedure: PA chest and upright and supine abdomen views are obtained. Findings: Chest: Cardiac size and pulmonary vessels are normal. Pneumonia, pneumothorax or pleural effusion ar e not present. Bones are normal Abdomen: No evidence of free air is present. Gas pattern is normal . Impression: Normal Chest . Normal abdomen without obstruction, ileus or free air . If indicated, CT scan of the abdomen would be useful for further evaluation. Electronically signed by: Izabela Martinez MD (11/10/2020 7:17 PM) DEANA
[2020-11-10 19:47] LABS: CLARITY,URINE CLEAR; COLOR,URINE YELLOW; GLUCOSE,URINE NEG (NEG)
[2020-11-10 19:48] LABS: BACTERIA,URINE 0 /HPF (0-FEW); BILIRUBIN,URINE NEG (NEG); NITRITE,URINE NEG (NEG); RBC,URINE 0 /HPF (0-2); SQUAMOUS EPITHELIAL CELL,UR MOD /LPF; UROBILINOGEN,URINE 0.2 mg/dL (0.2 mg/dL); WBC,URINE OCC /HPF (0-4)
[2020-11-10] MEDS ORDERED: CONTRAST GIVEN. MC PRN (20:15)
[2020-11-10 20:17] LABS: POTASSIUM 3.7 mmol/L (3.5-5.1)
[2020-11-10] MEDS ORDERED: IOHEXOL 300 MG/ML 75 ML VIAL. IV ONE (20:30)
[2020-11-10] MEDS ORDERED: IOHEXOL 240 MG/ML 50ML VIAL. PO ONE (20:30)
--- NOTE | 2020-11-10 21:00 | EKG ---
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
--- NOTE | 2020-11-10 21:59 | RAD ---
Exam performed: CT scan of the abdomen and pelvis with contrast Clinical Indication:Left pelvic pain Date of Service:11/10/2020 comparison: CT abdomen and pelvis from 10/19/2019 Technique: Contiguous helical acquisitions are obtained from the lung bases to the pelvis during int ravenous administration of [75 mL of Isovue-320]. In addition oral contrast was also given. Sagittal and coronal reformatted images were obtained and reviewed. CT abdomen and pelvis findings: The lung bases appear essentially clear. Visualized heart is normal. Mild hepatic steatosis without focal lesions. The spleen, pancreas and gallbladder appear normal. Bot h adrenal glands and bilateral kidneys are normal in size with symmetric excretion of contrast via keenan th kidneys. Aorta is normal in caliber. There is a small approximately 7 mm aortocaval lymph node. Th is small bowel loops are nondilated and unremarkable. There are several mildly enlarged mesenteric ly mph nodes at the root of mesentery, the largest lymph node measures up to 8 mm in short axis dimensio n visualized appendix is normal. No inflammatory changes seen in the right lower quadrant. There is d iffuse scattered stool predominantly in the rectosigmoid region. The urinary bladder is distended. Pr ostate gland, seminal vesicles and rectum appear normal. Sagittal and coronal reformatted images were obtained and reviewed which demonstrate no additional f indings. Impression abdomen and pelvis : 1. No acute intra-abdominal or pelvic process is detected. 2. Diffuse scattered stool throughout the colon including rectosigmoid region. Correlate clinically f or constipation. 3. Mildly enlarged mesenteric and retroperitoneal lymph nodes of unclear clinical significance. If in dicated short-term interval follow-up CT of the abdomen and pelvis may be obtained to ensure interval resolution. PQRS Compliance Statement: One or more of the following individualized dose reduction techniques were utilized for this examinat ion: 1. Automated exposure control 2. Adjustment of the mA and/or kV according to patient size 3. Use of iterative reconstruction technique Electronically signed by: Izabela Martinez MD (11/10/2020 9:56 PM) [facility] SYSTEM[facility]o
[2020-11-10] MEDS ORDERED: ONDA4TAB7 PO (22:13)
[2020-11-10] MEDS ORDERED: CIPR500S2 PO (22:13)
[2020-11-10] MEDS ORDERED: METR500T PO (22:13)
[2020-11-10] MEDS ORDERED: CIPROFLOXACIN HCL 500 MG TABLET PO ONE (22:15)
[2020-11-10] MEDS ORDERED: metroNIDAZOLE 500 MG TABLET PO ONE (22:15)
== END 2020-11-10 22:24 | disposition home or self-care (01) ==
LOC: ER 17:53
DX: R10.13 Epigastric pain (principal); Z20.822 Contact with and (suspected) exposure to COVID-19; R10.11 Right upper quadrant pain; R11.0 Nausea; B34.9 Viral infection, unspecified; R59.0 Localized enlarged lymph nodes; R79.89 Other specified abnormal findings of blood chemistry; K21.9 Gastro-esophageal reflux disease without esophagitis; Z87.442 Personal history of urinary calculi; Z98.890 Other specified postprocedural states; Z88.0 Allergy status to penicillin; Z88.1 Allergy status to other antibiotic agents; Z88.8 Allergy status to other drugs, medicaments and biological substances
CPT/HCPCS: 36415; 74022; 74177; 80048; 80076; 80307; 81001; 82150; 82550; 83690; 84484; 85025; 85379; 85610; 85730; 86705; 86709; 86803; 87340; 93005; 96361; 96374; 96375; 99285; C9803; J1885; J2405; J3490; J7120; Q9966; Q9967; U0003

== ENCOUNTER 2021-02-05 02:51 | Emergency (ER) | payer SELFPAY ==
[~2021-02-05] VITALS: Ht 165.1 cm; Wt 90.2 kg
[~2021-02-05 02:51] MED LIST changes: +CIPR500S2 PO; +ONDA4TAB7 PO
[2021-02-05 03:08] VITALS: BP 131/85
--- NOTE | 2021-02-05 03:10 | PHYS DOC ---
Past History Past Medical History: No Pertinent History, Gallstones, GERD Additional Past Medical Histor: legally deaf, cleft pallet, stroke in 2020. Past Surgical History: Other Additional Past Surgical Histo: reapir to ears bilaterally x 9. Alcohol Use: None Drug Use: None Adult General HPI HPI Patient is a 31-year-old male, otherwise healthy and up-to-date on tetanus status who presents with a small laceration on his nose. 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 States that it did scab over and was healing but he scratched his nose while wrestling and it began to bleed again. Denies any other injuries. Review of Systems Review of Systems Review of systems otherwise unremarkable except noted in HPI Allergies Allergies Allergies Coded Allergies Type Severity Reaction Last Updated Verified Penicillins Allergy Intermediate 11/10/20 Yes amoxicillin Allergy Intermediate 08/30/19 Yes cefaclor Allergy Intermediate 08/30/19 Yes clavulanic acid Allergy Intermediate 08/30/19 Yes vancomycin Allergy Intermediate RED WELTS ON ABDOMEN 02/24/20 Yes Physical Exam Physical Exam Constitutional: Well developed, well nourished, no acute distress, non-toxic appearance. [] HENT: Normocephalic, atraumatic, bilateral external ears normal, oropharynx m oist, no oral exudates, nose normal. Left outer nare has an approximately 1/2 to 1 cm very superficial laceration. [] Eyes: PERRLA, EOMI, conjunctiva normal, no discharge. [] Neurologic: Alert and oriented X 3, normal motor function, normal sensory function, no focal deficits noted. [] Psychologic: Affect normal, judgement normal, mood normal. [] EKG EKG [] Radiology/Procedures Radiology/Procedures [] Heart Score C/O Chest Pain: No Risk Factors: Risk Factors: DM, Current or recent (<one month) smoker, HTN, HLP, family history of CAD, obesity. Risk Scores: Risk Factors: DM, Current or recent (<one month) smoker, HTN, HLP, family history of CAD, obesity. Course & Med Decision Making Course & Med Decision Making Patient is a 31-year-old male who presents with nasal laceration Vital signs not concerning. Physical exam noted above. Patient up-to-date on tetanus. Wound cleaned. Sealed with Dermabond. Advised to follow-up with primary care as needed. Gave return precautions to the ED. Patient grateful, verbalized understanding and agreed with plan of discharge. [] Dragon Disclaimer Dragon Disclaimer This electronic medical record was generated, in whole or in part, using a voice recognition dictation system. Departure Departure: Impression: Primary Impression: Nasal laceration Disposition: HOME / SELF CARE / HOMELESS Condition: GOOD Referrals: PCP,NO (PCP) ANNA KESSLER MD Patient Instructions: Tissue Adhesive Wound Care Additional Instructions: Please read all the attached information carefully. Please keep the area clean and dry. Please refrain from any activity that could reinjure it as discussed. Please follow-up with your primary care as needed. Please return to the ED with new or concerning symptoms. YAMIL PEOPLES MD Feb 05, 2021 03:10
== END 2021-02-05 03:17 | disposition home or self-care (01) ==
LOC: ER 02:51
DX: S01.21XA Laceration without foreign body of nose, initial encounter (principal); K21.9 Gastro-esophageal reflux disease without esophagitis; Z88.0 Allergy status to penicillin; Z88.1 Allergy status to other antibiotic agents; W50.4XXA Accidental scratch by another person, initial encounter; Y93.72 Activity, wrestling; Y92.89 Other specified places as the place of occurrence of the external cause; Y99.8 Other external cause status
CPT/HCPCS: 12011; 99282

== ENCOUNTER 2021-03-03 20:09 | Emergency (ER) | payer SELFPAY ==
[~2021-03-03] VITALS: Ht 165.1 cm; Wt 88.0 kg
--- NOTE | 2021-03-03 21:53 | RAD ---
XR RT WRIST 3VIEWS, XR FOREARM_RIGHT 2 VIEWS 03/03/2021 9:09 PM INDICATION: Trauma, fall. Distal forearm pain COMPARISON: None available. TECHNIQUE: 3 views of the right wrist and 2 views of right forearm are provided. FINDINGS/ IMPRESSION: There is no acute fracture or dislocation. Joint spaces are maintained. Bone mineralization is within normal limits. Regional soft tissues are within normal limits. There is no soft tissue gas or osseou s erosion. No radiopaque foreign body. Electronically signed by: Belkis Odom MD (03/03/2021 9:50 PM) [facility]
--- NOTE | 2021-03-03 21:54 | PHYS DOC ---
Past History Past Medical History: No Pertinent History, Gallstones, GERD Additional Past Medical Histor: legally deaf, cleft pallet, stroke in 2020. Past Surgical History: Other Additional Past Surgical Histo: reapir to ears bilaterally x 9. Alcohol Use: None Drug Use: None Adult General Chief Complaint Chief Complaint: WRIST PAIN HPI HPI Patient is a 31-year-old male who presents with right wrist and forearm pain. 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 States that the pain is 5 out of 10, dull and achy in nature with no radiation. Denies any other injuries. Denies any numbness/weakness/tingling. States he did take some Tylenol. Review of Systems Review of Systems Review of systems otherwise unremarkable except noted in HPI Allergies Allergies Allergies Coded Allergies Type Severity Reaction Last Updated Verified Penicillins Allergy Intermediate 02/05/21 Yes amoxicillin Allergy Intermediate 02/05/21 Yes cefaclor Allergy Intermediate 02/05/21 Yes clavulanic acid Allergy Intermediate 02/05/21 Yes vancomycin Allergy Intermediate RED WELTS ON ABDOMEN 02/05/21 Yes Physical Exam Physical Exam Constitutional: Well developed, well nourished, no acute distress, non-toxic appearance. [] HENT: Normocephalic, atraumatic, bilateral external ears normal, oropharynx moist, no oral exudates, nose normal. [] Eyes: conjunctiva normal, no discharge. [] Neck: Normal range of motion, no tenderness, supple, no stridor. [] Back: No tenderness, Extremities: No tenderness, no cyanosis, no clubbing, ROM intact, no edema. [] Neurologic: Alert and oriented X 3, normal motor function, normal sensory function, no focal deficits noted. [] Psychologic: Affect normal, judgement normal, mood normal. [] Current Patient Data Vital Signs Vital Signs Date Time Temp Pulse Resp B/P (MAP) Pulse Ox O2 Delivery O2 Flow Rate FiO2 03/03/21 20:09 98.8 93 18 131/83 (99) 98 Room Air EKG EKG [] Radiology/Procedures Radiology/Procedures [] Heart Score C/O Chest Pain: No Risk Factors: Risk Factors: DM, Current or recent (<one month) smoker, HTN, HLP, family history of CAD, obesity. Risk Scores: Risk Factors: DM, Current or recent (<one month) smoker, HTN, HLP, family history of CAD, obesity. Course & Med Decision Making Course & Med Decision Making Patient is a 31-year-old male who presents with right wrist and forearm pain after injuring it during wrestling concern for break Vital signs not concerning. Physical exam noted above. Denied need for Tylenol, ibuprofen. Given ice pack. Imaging noted above with no acute osseous abnormalities. Gave instructions on symptom control at home. Advised to follow-up with primary care as needed. Gave return precautions to the ED. Patient grateful, verbalized understanding and agreed with plan of discharge. [] Dragon Disclaimer Dragon Disclaimer This electronic medical record was generated, in whole or in part, using a voice recognition dictation system. Departure Departure: Impression: Primary Impression: Wrist pain Additional Impression: Forearm pain Disposition: HOME / SELF CARE / HOMELESS Condition: GOOD Referrals: PCP,JOHANNA (PCP) ANNA KESSLER MD Patient Instructions: RICE - Routine Care for Injuries Additional Instructions: Please read all the attached information very carefully for management at home. Please follow-up with your primary care physician as soon as you can to discuss your ED visit. Your imaging did not show any fractured/broken bones. Please come back to the ED with new or concerning symptoms as discussed. Problem Qualifiers YAMIL PEOPLES MD March 03, 2021 21:54
[2021-03-03 22:10] VITALS: BP 136/101
== END 2021-03-03 22:05 | disposition home or self-care (01) ==
LOC: ER 20:09
DX: M25.531 Pain in right wrist (principal); M79.631 Pain in right forearm; K21.9 Gastro-esophageal reflux disease without esophagitis; Z88.0 Allergy status to penicillin; Z88.1 Allergy status to other antibiotic agents; Z88.6 Allergy status to analgesic agent; W18.39XA Other fall on same level, initial encounter; Y93.72 Activity, wrestling; Y92.89 Other specified places as the place of occurrence of the external cause; Y99.8 Other external cause status
CPT/HCPCS: 73090; 73110; 99284-25

== ENCOUNTER 2021-10-25 14:16 | Emergency (ER) | payer SELFPAY ==
[~2021-10-25] VITALS: Ht 165.1 cm; Wt 88.0 kg
[~2021-10-25 14:16] MED LIST changes: +CLIN-95 PO; -CLIN300C9 PO
[2021-10-25 14:20] VITALS: BP 117/87
--- NOTE | 2021-10-25 16:35 | PHYS DOC ---
Past History Past Medical History: No Pertinent History, Gallstones, GERD Additional Past Medical Histor: legally deaf, cleft pallet, stroke in 2020, chronic infection L ear (MIRACLE TORRES) Past Surgical History: Other Additional Past Surgical Histo: reapir to ears bilaterally x 9. (MIRACLE TORRES) Alcohol Use: None Drug Use: None (MIRACLE TORRES) General Adult EDM: Chief Complaint: FOREIGN BODY HPI: HPI: Patient is a 31 year old male who presents with the cotton portion of a cotton swab stuck in his left ear. Patient reports he has had a chronic ear infection for 6 years in his left ear after multiple reconstructive surgeries. He has undergone several rounds of various antibiotics without symptom improvement. He was recently told after CT scan that the infection had "spread to his skull." He uses Q-tips to clean the drainage from his ear secondary to the infection. Today, when he inserted the Q-tip to his ear canal to absorb drainage, the cotton end remained inside of his ear. Patient denies pain, but he states he can "hear it moving" when he talks. (MIRACLE TORRES) Review of Systems: Review of Systems: ROS negative or noncontributory except as mentioned in HPI. (MIRACLE TORRES) Allergies: Allergies: Allergies Coded Allergies Type Severity Reaction Last Updated Verified Penicillins Allergy Intermediate 02/05/21 Yes amoxicillin Allergy Intermediate 02/05/21 Yes cefaclor Allergy Intermediate 02/05/21 Yes clavulanic acid Allergy Intermediate 02/05/21 Yes vancomycin Allergy Intermediate RED WELTS ON ABDOMEN 02/05/21 Yes (MIRACLE TORRES) Physical Exam: PE: Constitutional: Well developed, well nourished, no acute distress, non-toxic appearance. HENT: Normocephalic, atraumatic, right external ear without obvious deformity or discharge, left external ear with clear liquid discharge and few drops of blood, left ear canal opening extremely small secondary to chronic swelling (TM not visualized), white foreign body barely visible with otoscope, right ear canal with minimal swelling and no discharge, TM pearly mccain without bulging or fluid level, oropharynx moist, no oral exudates, nose normal. Cardiovascular: Heart rate regular rhythm, no murmur. Lungs & Thorax: Bilateral breath sounds clear to auscultation. (MIRACLE TORRES) Current Patient Data: Vital Signs: Vital Signs Date Time Temp Pulse Resp B/P (MAP) Pulse Ox O2 Delivery O2 Flow Rate FiO2 10/25/21 14:20 98.2 88 16 117/87 (97) 99 Room Air (MIRACLE TORRES) Heart Score: C/O Chest Pain: No (IMRACLE TORRES) Course & Med Decision Making: Course & Med Decision Making Pertinent Labs and Imaging studies reviewed. (See chart for details) Patient is a 31-year-old male with chronic left ear infection who presents with retained foreign body in his left ear canal. Cotton swab tip visualized at ear canal opening. Alligator forceps used to remove foreign body from ear canal. Patient states he has undergone several rounds of antibiotic therapy for his ear infection without symptom improvement. He plans to see ENT specialist for further evaluation and management. Strongly advised to do so. Patient was given return precautions. He understands and is agreeable to discharge plan. (MIRACLE TORRES) Course & Med Decision Making I was the Attending physician on the above date of service of this patient. This patient was evaluated, examined, treated, and dispositioned from the emergency department by the mid-level practitioner. Although I was working at the time , no assistance was requested. Electronically signed, Gladis Herrera DO (GLADIS HERRERA DO) Nicolas Disclaimer: Nicolas Disclaimer: This electronic medical record was generated, in whole or in part, using a voice recognition dictation system. (MIRACLE TORRES) Departure Departure: Impression: Primary Impression: Foreign body in left ear, initial encounter Additional Impression: Chronic infection of left ear Disposition: HOME / SELF CARE / HOMELESS Condition: STABLE Referrals: PCP,JOHANNA (PCP) SHANICE COE DO Patient Instructions: Ear Foreign Body, [id number] Additional Instructions: Dr. Nabeel Jimenez MD Otol[facility]ology (ENT) [facility] [address] [address] Avoid pushing cotton swabs into the ear canal. You may clean the auricle and outside of the ear, but do not insert objects past the opening of the canal. Return for worsening symptoms or other concerns. MIRACLE TORRES Oct 25, 2021 16:34 GLADIS HERRERA DO Oct 26, 2021 06:43
== END 2021-10-25 16:42 | disposition home or self-care (01) ==
LOC: ER 14:16
DX: T16.2XXA Foreign body in left ear, initial encounter (principal); H66.92 Otitis media, unspecified, left ear; K21.9 Gastro-esophageal reflux disease without esophagitis; Z88.0 Allergy status to penicillin; Z88.1 Allergy status to other antibiotic agents; X58.XXXA Exposure to other specified factors, initial encounter; Y93.89 Activity, other specified; Y92.89 Other specified places as the place of occurrence of the external cause; Y99.8 Other external cause status
CPT/HCPCS: 69200; 99284